=== PATIENT | female | born 1940 | race Two or more races ===

== ENCOUNTER 2024-07-10 17:26 | Inpatient (IN) | payer MEDICARE, OTHER ==
[~2024-07-10] VITALS: Ht 170.2 cm; Wt 92.0 kg
[2024-07-10] MEDS: VANCOMYCIN 1.5GM/250ML 250 ML IV ONE (01:09)
[2024-07-10] MEDS ORDERED: CEFEPIME 1GM/ 50ML 50 ML IV ONE (18:15)
[2024-07-10] MEDS ORDERED: VANCOMYCIN PER PHARMACY 0 MG IV SCH (18:15)
--- NOTE | 2024-07-10 18:16 | ED.PDOC ---
History of Present Illness HPI Comments 84-year-old female with history of hypertension, AFib, DVT, neuropathy and recently diagnosed bilateral leg and foot cellulitis on Bactrim brought in by EMS from home, referred to the ER by her primary doctor for worsening bilateral lower extremity redness and swelling. Patient denies any pain, as she states she has neuropathy in both feet. Patient also notes she has been unable to ambulate and has been wheelchair-bound since April of 2022, and has developed some wounds on her buttocks. She states she has had blisters on both lower extremities that burst 4 days ago, after which the lower extremity redness and swelling worsened. She states she has been compliant with taking Bactrim. She denies any chest pain, shortness of breath or fever. Chief Complaint: Extremity Swelling Time Seen by MD: 17:44 Primary Care Provider: MADDI Reviewed Notes: Nurses Notes, Vault Service Mechanic Notes Allergies: Coded Allergies: Cephalexin (Verified Allergy, Unknown, 07/10/24) Penicillins (Verified Allergy, Unknown, 07/10/24) Information Source: Patient, Emergency Med Personnel Mode of Arrival: EMS Past Medical History PAST MEDICAL HISTORY: AFIB, HTN Past Medical History (Other): DVT Surgical History: Cholecystectomy, Tonsillectomy Surgical History (Other): D&C EMBRYOLOGY TEACHER History: No Pertinent EMBRYOLOGY TEACHER History Family History Family History: Reviewed,noncontributory to illness Social History Smoker: Non-Smoker Alcohol: Denies ETOH Use Drugs: Denies Drug Use Lives In: Home All Other Systems: Reviewed and Negative (Comprehensive systems review obtained and negative except for what is stated in the HPI.) Physical Exam General Appearance: No Apparent Distress HEENT: Other (Pupils and face symmetric. Moist mucous membranes.) Neck: Full Range of Motion, Normal Inspection Respiratory: Lungs Clear, No Accessory Muscle Use, No Respiratory Distress, Normal Breath Sounds Cardiovascular: No JVD, Regular Rate/Rhythm Breast Exam: Deferred Gastrointestinal: Non Tender, Soft Genitalia: Deferred Pelvic: Deferred Rectal: Deferred Extremities: Leg edema, Pedal edema, Other (Bilateral lower leg and foot erythema, edema) Neurologic: Alert (Oriented x4), Normal Affect, Normal Mood, Other (Moves all extremities.) Cerebellar Function: NOT DONE Reflexes: NOT DONE Skin: Dry, Warm, Other (Bilateral lower leg and foot erythema and edema) Lymphatic: NOT DONE Was a procedure done? Was a procedure done?: No EKG EKG : Comments Sinus tach, rate 103, normal OH interval, QRS slightly prolonged at 132, QTC prolonged at 521, normal axis, right bundle branch block nonspecific T changes. Differential Dx Considerations may include: Cellulitis, CHF, DVT, sepsis, among others X-Ray, Labs, Meds, VS Vital Signs Date Time Temp Pulse Resp B/P (MAP) Pulse Ox O2 Delivery O2 Flow Rate FiO2 07/10/24 17:38 98.2 82 16 142/81 (101) 98 98.2 Lab Test 07/10/24 19:14 07/10/24 18:20 Range/Units Troponin I High Sensitivity 8 6 </=34 ng/L White Blood Count 10.3 4.4-10.8 10^3/uL Red Blood Count 4.44 4.0-5.20 10^6/uL Hemoglobin 13.1 12.2-16.2 g/dL Hematocrit 39.9 36.0-46.0 % Mean Corpuscular Volume 89.8 80.0-100.0 fL Mean Corpuscular Hemoglobin 29.5 28.0-32.0 pg Mean Corpuscular Hemoglobin Concent 32.9 32.0-36.0 g/dL Red Cell Distribution Width 14.3 11.8-14.3 % Platelet Count 398 140-450 10^3/uL Mean Platelet Volume 8.5 6.9-10.8 fL Neutrophils (%) (Auto) 81.9 H 37.0-80.0 % Lymphocytes (%) (Auto) 8.9 L 10.0-50.0 % Monocytes (%) (Auto) 7.7 0.0-12.0 % Eosinophils (%) (Auto) 0.3 0.0-7.0 % Basophils (%) (Auto) 1.2 0.0-2.0 % Neutrophils # (Auto) 8.5 1.6-8.6 10 ^3/uL Lymphocytes # (Auto) 0.9 0.4-5.4 10 ^3/uL Monocytes # (Auto) 0.8 0-1.3 10 ^3/uL Eosinophils # (Auto) 0 0-0.8 10 ^3/uL Basophils # (Auto) 0.1 0-0.2 10 ^3/uL Nucleated Red Blood Cells 0.1 % Sodium Level 140 136-145 mmol/L Potassium Level 4.9 3.5-5.1 mmol/L Chloride Level 106 98-107 mmol/L Carbon Dioxide Level 27 20-31 mmol/L Anion Gap 7 5-15 Blood Urea Nitrogen 37 H 9-23 mg/dL Creatinine 1.03 H 0.550-1.02 mg/dL Glomerular Filtration Rate Calc 54 >90 mL/min BUN/Creatinine Ratio 35.9 H 10.0-20.0 Serum Glucose 110 H 74-106 mg/dL Lactic Acid Level 1.0 0.4-2.0 mmol/L Calcium Level 9.8 8.7-10.4 mg/dL B-Type Natriuretic Peptide 41.62 0-100 pg/mL PROCEDURE(s): CXRP - CHEST PORTABLE REASON: edema ORDER NUMBER(s): [id number], ACCESSION NUMBER(s): [id number] CHEST RADIOGRAPH Indication: edema Technique: Single frontal view of the chest was obtained Comparison: None FINDINGS: Lines and Tubes: None Lungs: No focal consolidation. Mild Interstitial prominence. Pleura: No effusion. No pneumothorax. Cardiomediastinal contours: Mild cardiomegaly with moderate atherosclerotic calcification and uncoiling of the aorta. Bones: No acute osseous abnormality. IMPRESSION: Mild pulmonary vascular congestion. EDURE(s): BLDVT - BiLat Lower DVT REASON: ble edema ORDER NUMBER(s): [id number], ACCESSION NUMBER(s): [id number] Bilateral lower extremity venous duplex Clinical History: ble edema Comparison: None Technique: Duplex Doppler evaluation of the deep venous systems of both lower extremities from the common femoral veins to the popliteal veins including color Doppler and spectral/pulsed waveform analysis was performed. Findings: RIGHT SIDE: The common femoral vein demonstrates appropriate compressibility and waveform variability. There is compressibility/patency of the great saphenous vein at the proximal thigh. The femoral vein demonstrates appropriate compressibility and waveform variability. The deep femoral vein demonstrates appropriate compressibility and waveform variability. The popliteal vein demonstrates appropriate compressibility and waveform variability. There is color flow at the tibioperoneal trunk and in the posterior tibial vein. LEFT SIDE: The common femoral vein demonstrates appropriate compressibility and waveform variability. There is compressibility/patency of the great saphenous vein at the proximal thigh. The femoral vein demonstrates appropriate compressibility and waveform variability. The deep femoral vein demonstrates appropriate compressibility and waveform variability. The popliteal vein demonstrates appropriate compressibility and waveform variabi lity. There is color flow at the tibioperoneal trunk and in the posterior tibial vein. Impression: 1. No right or left femoropopliteal venous thrombosis. X-Ray, Labs, Meds, VS Comment 84-year-old female with a history of AFib, hypertension and DVT on Eliquis brought in by EMS for evaluation of worsening bilateral foot and leg edema and erythema Vitals remarkable for BP 142/81 Exam remarkable for bilateral foot and ankle and lower leg erythema and edema Rhythm strip independently interpreted by me: Sinus tach, rate 103, no ectopy. Chest x-ray IMPRESSION: Mild pulmonary vascular congestion. Bilateral lower extremity ultrasound Impression: 1. No right or left femoropopliteal venous thrombosis. CBC remarkable, BMP remarkable for BUN 37, creatinine 1.03, BNP normal, troponin negative, lactic normal, UA pending Patient treated with the following in the ED: Cefepime 1 g IV, vancomycin IV per pharmacy On re-evaluation, patient is resting comfortably with stable vitals. Plan is to admit the patient for IV antibiotics. Time of 1ST Reevaluation: 18:15 Reevaluation 1ST: Unchanged Patient Education/Counseling: Diagnosis, Treatment Family Education/Counseling: No Family Present Departure 1 Departure Time of Disposition: 21:41 Impression: Primary Impression: Bilateral lower leg cellulitis Disposition: ADMITTED INPATIENT Admit to: Med Surg Condition: Fair Critical Care Note Critical Care Time?: No Stability Stability form required: No Heart Score Heart Score: Heart Score Response (Comments) Value History N/A 0 EKG N/A 0 Age N/A 0 Risk Factors N/A 0 Troponin N/A 0 Total 0 JUSTINA GAGE MD Jul 10, 2024 18:16
[2024-07-10 18:41] LABS: Basophils # (auto) 0.1 10 ^3/uL (0-0.2); Basophils % (auto) 1.2 % (0.0-2.0); Eosinophils # (auto) 0 10 ^3/uL (0-0.8); Eosinophils % (auto) 0.3 % (0.0-7.0); Hematocrit 39.9 % (36.0-46.0); Hemoglobin 13.1 g/dL (12.2-16.2); Lymphocytes # (auto) 0.9 10 ^3/uL (0.4-5.4); Lymphocytes % (auto) 8.9 % (10.0-50.0); Mean Corpuscular Hemoglobin 29.5 pg (28.0-32.0); Mean Corpuscular Hgb Conc. 32.9 g/dL (32.0-36.0); Mean Corpuscular Volume 89.8 fL (80.0-100.0); Monocytes # (auto) 0.8 10 ^3/uL (0-1.3); Monocytes % (auto) 7.7 % (0.0-12.0); Neutrophils # (auto) 8.5 10 ^3/uL (1.6-8.6); Neutrophils % (auto) 81.9 % (37.0-80.0); Nucleated Red Blood Cells % 0.1 %; Platelet Count (auto) 398 10^3/uL (140-450); Red Blood Cells 4.44 10^6/uL (4.0-5.20); Red Cell Distribution Width 14.3 % (11.8-14.3); White Blood Cell 10.3 10^3/uL (4.4-10.8)
[2024-07-10 19:05] LABS: Chloride 106 mmol/L (98-107); Potassium 4.9 mmol/L (3.5-5.1); Sodium 140 mmol/L (136-145)
[2024-07-10 19:06] LABS: Anion Gap 7 (5-15); Carbon Dioxide 27 mmol/L (20-31)
[2024-07-10 19:07] LABS: Calcium 9.8 mg/dL (8.7-10.4)
[2024-07-10 19:11] LABS: BUN/Creatinine Ratio 35.9 (10.0-20.0)
[2024-07-10 19:13] LABS: Blood Urea Nitrogen 37 mg/dL (9-23); Glucose 110 mg/dL (74-106)
--- NOTE | 2024-07-10 20:41 | DVH ---
CHEST RADIOGRAPH Indication: edema Technique: Single frontal view of the chest was obtained Comparison: None FINDINGS: Lines and Tubes: None Lungs: No focal consolidation. Mild Interstitial prominence. Pleura: No effusion. No pneumothorax. Cardiomediastinal contours: Mild cardiomegaly with moderate atherosclerotic calcification and uncoili ng of the aorta. Bones: No acute osseous abnormality. IMPRESSION: Mild pulmonary vascular congestion.
--- NOTE | 2024-07-10 20:45 | DVH ---
Bilateral lower extremity venous duplex Clinical History: ble edema Comparison: None Technique: Duplex Doppler evaluation of the deep venous systems of both lower extremities from the co mmon femoral veins to the popliteal veins including color Doppler and spectral/pulsed waveform analys is was performed. Findings: RIGHT SIDE: The common femoral vein demonstrates appropriate compressibility and waveform variability. There is compressibility/patency of the great saphenous vein at the proximal thigh. The femoral vein demonstrates appropriate compressibility and waveform variability. The deep femoral vein demonstrates appropriate compressibility and waveform variability. The popliteal vein demonstrates appropriate compressibility and waveform variability. There is color flow at the tibioperoneal trunk and in the posterior tibial vein. LEFT SIDE: The common femoral vein demonstrates appropriate compressibility and waveform variability. There is compressibility/patency of the great saphenous vein at the proximal thigh. The femoral vein demonstrates appropriate compressibility and waveform variability. The deep femoral vein demonstrates appropriate compressibility and waveform variability. The popliteal vein demonstrates appropriate compressibility and waveform variability. There is color flow at the tibioperoneal trunk and in the posterior tibial vein. Impression: 1. No right or left femoropopliteal venous thrombosis.
[2024-07-11] VITALS (11 sets, daily range): BP systolic 90–111; BP diastolic 32–53; PULSE 77–99; RESP 12–18; TEMP 98–98.5; O2SAT 94–98
[2024-07-11] MEDS: VANCOMYCIN 1.5GM/300ML 300 ML IV ONE (01:08)
[2024-07-11] MEDS: VANCOMYCIN 1.5GM/250ML 250 ML IV ONE (01:09)
[2024-07-11] MEDS ORDERED: ONDANSETRON HCL 4 MG/2 ML VIAL IV PRN (01:15)
--- NOTE | 2024-07-11 01:23 | DVHHPRES ---
History of Present Illness Resident Creating Document: KAL WILKES RESIDENT History of Present Illness Patient is an 84-year-old wheelchair-bound female with past medical history of hypertension, atrial fibrillation, severe peripheral neuropathy, chronic venous stasis, lower extremity cellulitis, dyslipidemia, rectal prolapse, who comes in due to bilateral lower extremity blistering lesions. Per patient, she was discharged from the [facility] on 06/12/2024 after being treated for bilateral lower extremity cellulitis. According to the patient, she noticed increasing blisters on bilateral lower extremities that bursted and started draining, patient says it seemed infected and she talked to her PCP who recommended that she goes to the hospital which is what prompted this visit. On review of systems patient is complaining of chills and constipation. Past Medical History hypertension, atrial fibrillation, severe peripheral neuropathy, chronic venous stasis, lower extremity cellulitis, dyslipidemia, rectal prolapse Past Surgical History Cholecystectomy, D and C, tonsillectomy, adenoidectomy Smoke: No ALCOHOL: none Drugs: None Lives: Alone Review of Systems Constitutional: Yes: Chills; No: Fever, Sweats, Weakness, Malaise, Other Eyes: No: Pain, Vision change, Conjunctivae inflammation, Eyelid inflammation, Other, Redness ENT: No: Ear pain, Ear discharge, Nose pain, Nose discharge, Nose congestion, Mouth pain, Mouth swelling, Throat pain, Throat swelling, Other Respiratory: No: Cough, Dry, Shortness of breath, SOB with excertion, Wheezing, Hemoptysis, Pleuritic Pain, Sputum, Wheezing, Other Cardiovascular: No: Chest Pain, Palpitations, Orthopnea, Paroxysmal Noc. Dyspnea, Edema, Lt Headedness, Other Gastrointestinal: Constipation; No: Nausea, Vomiting, Abdominal Pain, Diarrhea, Melena, Hematochezia, Other Genitourinary: No Dysuria, No Frequency, No Incontinence, No Hematuria, No Retention, No Other Musculoskeletal: No: other, neck pain, shoulder pain, arm pain, back pain, hand pain, leg pain, foot pain Skin: No: Rash, Lesions, Jaundice, Bruising, Other Neurological: No: Weakness, Numbness, Incoordination, Change in speech, Confusion, Seizures, Other Allergies: Coded Allergies: Cephalexin (Verified Allergy, Unknown, 07/10/24) Penicillins (Verified Allergy, Unknown, 07/10/24) Medications Current Medications Medications Dose Ordered Sig/Vinny Route Start Time Stop Time Status Last Admin Dose Admin Vancomycin HCl 0 ml @ 0 mls/hr UD IV 07/10/24 18:15 Acetaminophen 325 mg Q4HP PRN PO 07/11/24 01:15 UNV Ondansetron HCl 4 mg Q4HP PRN IV 07/11/24 01:15 UNV Enoxaparin Sodium 100 mg Q12HR SC 07/11/24 01:15 UNV Pantoprazole Sodium 40 mg DAILY@0600 PO 07/11/24 06:00 UNV Exam Vital Signs Vital Signs Date Time Temp Pulse Resp B/P (MAP) Pulse Ox O2 Delivery O2 Flow Rate FiO2 07/11/24 00:15 96 12 98 Room Air* 0 21 07/11/24 00:15 98.3 80/56 (64) 98.3 General Appearance: Alert, Oriented X3, Cooperative, No acute distress HEENT: Atraumatic, PERRLA, EOMI, Other (dry mucous membrane) Respiratory: Clear to auscultation, Normal air movement Cardiovascular: Regular rate, Normal S1, Normal S2 Abdominal: Normal bowel sounds, Soft, No tenderness Extremities: Other (Bilateral lower extremity stasis dermatitis, ulcer noted on the medial aspect of left foot. Multiple scabbed lesions. Erythema and swelling. Decreased but positive pedal pulses on the left) Neuro: Normal speech, Other (Stage III pressure ulcers noted on the sacral area, skin fold maceration noted.) Psych/Mental Status: Mental status NL, Mood NL, Other (Slightly sad affect, no suicidal or homicidal ideation.) Labs/Xrays Labs Test 07/10/24 19:14 07/10/24 18:20 Range/Units Troponin I High Sensitivity 8 </=34 ng/L White Blood Count 10.3 4.4-10.8 10^3/uL Red Blood Count 4.44 4.0-5.20 10^6/uL Hemoglobin 13.1 12.2-16.2 g/dL Hematocrit 39.9 36.0-46.0 % Mean Corpuscular Volume 89.8 80.0-100.0 fL Mean Corpuscular Hemoglobin 29.5 28.0-32.0 pg Mean Corpuscular Hemoglobin Concent 32.9 32.0-36.0 g/dL Red Cell Distribution Width 14.3 11.8-14.3 % Platelet Count 398 140-450 10^3/uL Mean Platelet Volume 8.5 6.9-10.8 fL Neutrophils (%) (Auto) 81.9 H 37.0-80.0 % Lymphocytes (%) (Auto) 8.9 L 10.0-50.0 % Monocytes (%) (Auto) 7.7 0.0-12.0 % Eosinophils (%) (Auto) 0.3 0.0-7.0 % Basophils (%) (Auto) 1.2 0.0-2.0 % Neutrophils # (Auto) 8.5 1.6-8.6 10 ^3/uL Lymphocytes # (Auto) 0.9 0.4-5.4 10 ^3/uL Monocytes # (Auto) 0.8 0-1.3 10 ^3/uL Eosinophils # (Auto) 0 0-0.8 10 ^3/uL Basophils # (Auto) 0.1 0-0.2 10 ^3/uL Nucleated Red Blood Cells 0.1 % Sodium Level 140 136-145 mmol/L Potassium Level 4.9 3.5-5.1 mmol/L Chloride Level 106 98-107 mmol/L Carbon Dioxide Level 27 20-31 mmol/L Anion Gap 7 5-15 Blood Urea Nitrogen 37 H 9-23 mg/dL Creatinine 1.03 H 0.550-1.02 mg/dL Glomerular Filtration Rate Calc 54 >90 mL/min BUN/Creatinine Ratio 35.9 H 10.0-20.0 Serum Glucose 110 H 74-106 mg/dL Lactic Acid Level 1.0 0.4-2.0 mmol/L Calcium Level 9.8 8.7-10.4 mg/dL B-Type Natriuretic Peptide 41.62 0-100 pg/mL Assessment/Plan Assessment/Plan Bilateral lower extremity cellulitis Left foot ulcer, dorsomedial aspect Possible sepsis due to above Chronic venous stasis dermatitis Ruled out DVT - lower extremity Doppler negative - lower extremity CT from 06/07/2024 shows findings suggestive of diffuse cellulitis and/or edema. No fluid collection or abscess. - wound culture, blood culture - L lower extremity wound culture from 06/10/2024 showed Streptococcus group B, Staph aureus, VRE faecalis, Klebsiella - started on IV daptomycin and ertapenem based on previous culture and sensitivity results of the left lower extremity wound - IV NS 500 cc once - ordered PT evaluation - podiatry consulted Multiple sacral wounds, POA - wound consult - wound culture History of atrial fibrillation Hypercoagulable state secondary to above - therapeutic Lovenox - per patient last dose of Eliquis home medication was on 07/10/2024 in the a.m. - resumed home medication amiodarone 200 mg p.o. 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 - IV NS 500 cc - ordered urine sodium, urine creatinine - monitor Severe peripheral neuropathy - resumed home medication tramadol Hypertension Hypertensive heart disease Prediabetes?, A1c 5.8 on 06/06/2024 - holding home antihypertensives as blood pressure on the soft side - echocardiogram from 06/07/2024 shows EF 65%, left atrium enlarged. No severe valve abnormalities noted. PUD prophylaxis: protonix 40mg Goals of care: Chemical code, discussed for >16 minutes on 07/11/2024 Plan discussed with patient Plan discussed with Dr. Roberto Plan discussed with: Patient, Other (RN) My Orders Orders - KAL WILKES RESIDENT Procedure Category Date Status Time Admit ADMIT 07/11/24 Transmitted 01:11 Allergies MARY 07/11/24 In Process 01:11 Code Status CODE 07/11/24 Transmitted 01:11 Acetaminophen Tablet PHA 07/11/24 Logged (Tylenol Tablet) 01:15 Ondansetron Hcl PHA 07/11/24 Logged (Zofran) 01:15 Cardiac DIET 07/11/24 Transmitted Diet-2gna,Lofat,Lochol Breakfast Pt Request For Service PT 07/11/24 Logged 01:11 Condition: Unstable MARY 07/11/24 In Process 01:11 Notify Md Of Changes MARY 07/11/24 In Process From Base 01:11 Enoxaparin Sodium PHA 07/11/24 Logged (Lovenox) 01:15 Pantoprazole Tablet PHA 07/11/24 Logged (Protonix Tablet) 06:00 Sodium Chloride 0.9% PHA 07/11/24 Logged 01:15 Amiodarone Tablet PHA 07/11/24 Transmitted (Cordarone Tablet) 10:00 Tramadol Hcl (Ultram) PHA 07/11/24 Transmitted 01:30 Date of Service: Jul 11, 2024 Billing Provider: MARIA LUZ ROBERTO MD Common Visit Codes: [id number] INP/OBS CARE (HIGH) KAL WILKES RESIDENT Jul 11, 2024 01:23
[2024-07-11] MEDS ORDERED: DOCUSATE SOD 100 MG CAP PO PRN (01:30)
[2024-07-11] MEDS: SODIUM CHLORIDE 0.9% 500 ML IV ONE (01:36)
[2024-07-11] MEDS: traMADol HCL 50 MG TAB PO PRN (01:39)
[2024-07-11] MEDS: ENOXAPARIN SOD 100 MG/1 ML SYRINGE SC SCH ×2 (01:39→09:55)
[2024-07-11] MEDS: PANTOPRAZOLE 40 MG TAB PO SCH (06:32)
[2024-07-11] MEDS: ACETAMINOPHEN 325 MG TAB PO PRN (08:15)
[2024-07-11] MEDS: AMIODARONE HCL 200 MG TAB PO SCH (09:53)
[2024-07-11] MEDS: ERTAPENEM SOD INJ 1 GM in SODIUM CHL 0.9% 50 ML IV SCH (09:55)
[2024-07-11] MEDS ORDERED: CEFEPIME 2GM/50ML NS 50 ML IV SCH (10:00)
[2024-07-11] MEDS ORDERED: BACL20TA PO (10:33)
[2024-07-11] MEDS ORDERED: APIX5TAB PO (10:33)
[2024-07-11 10:44] LABS: Basophils # (auto) 0.1 10 ^3/uL (0-0.2); Basophils % (auto) 0.6 % (0.0-2.0); Eosinophils # (auto) 0.2 10 ^3/uL (0-0.8); Eosinophils % (auto) 1.7 % (0.0-7.0); Lymphocytes # (auto) 1.7 10 ^3/uL (0.4-5.4); Lymphocytes % (auto) 18.6 % (10.0-50.0); Mean Corpuscular Hemoglobin 29.9 pg (28.0-32.0); Mean Corpuscular Hgb Conc. 33.3 g/dL (32.0-36.0); Monocytes # (auto) 0.8 10 ^3/uL (0-1.3); Monocytes % (auto) 8.9 % (0.0-12.0); Neutrophils # (auto) 6.4 10 ^3/uL (1.6-8.6); Neutrophils % (auto) 70.2 % (37.0-80.0); Nucleated Red Blood Cells % 0.1 %; Platelet Count (auto) 373 10^3/uL (140-450); Red Cell Distribution Width 14.2 % (11.8-14.3); White Blood Cell 9.2 10^3/uL (4.4-10.8)
--- NOTE | 2024-07-11 10:48 | DVHPNRES ---
Progress Note Date Seen: Jul 11, 2024 Resident Creating Document: DAVIS NEWMAN RESIDENT Has the PT tested + for MRSA If YES, has PT been informed?: No Medical Necessity Reason Pt with a Central, PICC or Fol: No Medical Necessity Reason History of Present Illness Patient is an 84-year-old wheelchair-bound female with past medical history of hypertension, atrial fibrillation, severe peripheral neuropathy, chronic venous stasis, lower extremity cellulitis, dyslipidemia, rectal prolapse, who comes in due to bilateral lower extremity blistering lesions. Per patient, she was discharged from the [facility] on 06/12/2024 after being treated for bilateral lower extremity cellulitis. According to the patient, she noticed increasing blisters on bilateral lower extremities that bursted and started draining, patient says it seemed infected and she talked to her PCP who recommended that she goes to the hospital which is what prompted this visit. On review of systems patient is complaining of chills and constipation. Past Medical History: hypertension, atrial fibrillation, severe peripheral neuropathy, chronic venous stasis, lower extremity cellulitis, dyslipidemia, rectal prolapse, history of rheumatic fever as a child Past Surgical History: Cholecystectomy, D and C, tonsillectomy, adenoidectomy Social history: Denies smoking, alcohol and other drugs use. She lives alone but has nurse, PT and step children who comes to visit. PN: 07/11/2024 This is an 84-year-old female wheelchair-bound with a history of hypertension AFib, neuropathy recent history of bilateral cellulitis presented yesterday with bilateral lower extremity redness, pain and open wound. According to the patient, she had a blister on her right foot that broke open and then lead to open wound and is the similar thing with the left foot as well. According to the patient, She is wheelchair bound at baseline. She had weakness on her legs,but since her in 04/2024 spent so much in bed and that made her weakness worse. She managed for cellulitis in May 2024. Patient to the ED with similar problem of bilateral erythema, open wound and sores. She was tachycardic early and her bp is running low BP at 80/56 and running low. Hgb; 13.1 lactic acid is 1. UA and blood culture are pending. She is currently on Daptomycin and Ertapenem based on her last wound culture and sensitivity. Subjective Review of Systems Constitutional: Denies fever no chills no feeling of malaise HEENT: Denies headache, ear pain, ear discharges, conjunctivitis, nasal discharge throat pain Cardiovascular: Denies chest pain, palpitation, orthopnea, PND, or pedal edema Respiratory: Denies shortness of breath, cough cough, sputum production, hemoptysis, GI: Denies abdominal pain, nausea, vomiting, diarrhea, hematemesis, hematochezia, : Denies frequency, urgency, hematuria, Endocrine: Denies unintentional weight gain or weight loss, feeling of hot flashes, Rashard: Denies easy bruising, bleeding disorders, epistaxis Musculoskeletal: joint pains, muscle aches, no or mild sensation, pain on join movement Psych: No evidence of depression, arvin, suicidal ideation Objective vital signs Vital Sign Date Time Temp Pulse Resp B/P (MAP) Pulse Ox O2 Delivery O2 Flow Rate FiO2 07/11/24 09:00 98.3 89 16 90/35 (53) 95 98.3 07/11/24 03:56 Room Air* 0 21 Total Intake and Output 07/10/24 07/10/24 07/11/24 15:00 23:00 07:00 Intake Total 0 ml Output Total 0 ml Balance 0 ml medications Current Medications Medications Dose Ordered Sig/Vinny Route Start Time Stop Time Status Last Admin Dose Admin Acetaminophen 325 mg Q4HP PRN PO 07/11/24 01:15 07/11/24 08:15 325 MG Ondansetron HCl 4 mg Q4HP PRN IV 07/11/24 01:15 Pantoprazole Sodium 40 mg DAILY@0600 PO 07/11/24 06:00 07/11/24 06:32 40 MG Amiodarone HCl 200 mg DAILY PO 07/11/24 10:00 07/11/24 09:53 200 MG Tramadol HCl 50 mg Q6HP PRN PO 07/11/24 01:30 07/11/24 01:39 50 MG Docusate Sodium 100 mg BIDPRN PRN PO 07/11/24 01:30 Daptomycin 300 mg/ Sodium Chloride 50 ml @ 100 mls/hr DAILY@1100 IV 07/11/24 11:00 Ertapenem 1 gm/ Sodium Chloride 50 ml @ 100 mls/hr DAILY IV 07/11/24 10:00 07/11/24 09:55 100 MLS/HR Enoxaparin Sodium 90 mg Q12HR SC 07/11/24 10:00 07/11/24 09:55 90 MG Examination General Appearance: Alert, Oriented X3, Cooperative, No acute distress HEENT: Atraumatic, PERRLA, EOMI, Mucous membrane moist/pink Respiratory: Clear to auscultation, Normal air movement Cardiovascular: Regular rate, Normal S1, Normal S2, systolic murmurs heard, no chest wall tenderness Abdominal: NO distention, no tenderness, bowel sounds present, no scars noted Extremities: bilateral lower extremity, erythema, Mild non-pitting edema, Multiple eschars, pulse present though faint, wheelchair bound Skin: dry, scale with mild erythema and some maceration, warm to touch, Neuro: Normal gait, Normal speech, Strength at 5/5 X4 ext, Normal tone, Sensation intact, Cranial nerves 3-12 NL, Reflexes 2+ Psych/Mental Status: Mental status NL, Mood NL laboratory and microbiology Test 07/11/24 09:19 Range/Units Serum Glucose Pending Problem List/Assessment/Plan Problem List/Assessment/Plan Assessment Superficial skin infection, Right legs --> Likely Erysipelas --> Possible contact dermatitis --> Cover with mupirocin --> ceftriaxone, daptomycin Stasis dermatitis bilateral --> Recommended vascular surgery evaluation outpatient Multiple sacral wounds, POA - wound consult - wound culture History of atrial fibrillation Hypercoagulable state secondary to above - therapeutic Lovenox - per patient last dose of Eliquis home medication was on 07/10/2024 in the a.m. - resumed home medication amiodarone 200 mg p.o. 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 - IV NS 500 cc - ordered urine sodium, urine creatinine - monitor Severe peripheral neuropathy - resumed home medication tramadol Hypertension Hypertensive heart disease Prediabetes?, A1c 5.8 on 06/06/2024 - holding home antihypertensives as blood pressure on the soft side - echocardiogram from 06/07/2024 shows EF 65%, left atrium enlarged. No severe valve abnormalities noted. UTI --> continue antibiotic --> Obesity grade 1 --> BMI: 30.5 History of Rheumatic fever PUD prophylaxis: protonix 40mg Goals of care: Chemical code, discussed for >16 minutes: Chemical code Case and plan discussed + Dr. Quiroga Plan discussed with: Patient, Other (nurse) My Orders My Orders Orders - DAVIS NEWMAN Procedure Category Date Status Time Basic Metabolic Panel LAB 07/11/24 Logged 10:19 Complete Blood Count LAB 07/11/24 Logged 10:19 Blood Culture MALLY 07/11/24 Uncollected 10:19 Apixaban (Eliquis) PHA 07/11/24 Transmitted 22:00 (Nf) Baclofen PHA 07/11/24 Transmitted 14:00 Date of Service: Jul 11, 2024 Billing Provider: ZEHRA QUIROGA MD Common Visit Codes: [id number] INP/OBS CARE(HIGH) DAVIS NEWMAN Jul 11, 2024 10:48 ZEHRA QUIROGA MD July 13, 2024 19:17
[2024-07-11 11:02] LABS: Alanine Aminotransferase 12 U/L (7-40); Alkaline Phosphatase 86 U/L (46-116); Anion Gap 8 (5-15); Aspartate Aminotransferase 17 U/L (13-40); BUN/Creatinine Ratio 26.7 (10.0-20.0); Bilirubin, Total 0.5 mg/dL (0.2-1.0); Calcium 9.2 mg/dL (8.7-10.4); Carbon Dioxide 25 mmol/L (20-31); Potassium 3.9 mmol/L (3.5-5.1); Sodium 141 mmol/L (136-145)
[2024-07-11 11:04] LABS: Blood Urea Nitrogen 24 mg/dL (9-23); Chloride 108 mmol/L (98-107); Glucose 129 mg/dL (74-106); Total Protein 5.1 g/dL (5.7-8.2)
[2024-07-11] MEDS: DAPTOmycin 300 MG in SODIUM CHL 0.9% 50 ML IV SCH (11:19)
--- NOTE | 2024-07-11 12:04 | DVHINCON2 ---
Date Seen: Jul 11, 2024 Reason for Consultation Bilateral lower extremity cellulitis History of Present Illness Patient is an 84-year-old wheelchair-bound female with past medical history of hypertension, atrial fibrillation, severe peripheral neuropathy, chronic venous stasis, lower extremity cellulitis, dyslipidemia, rectal prolapse, who comes in due to bilateral lower extremity blistering lesions. Per patient, she was discharged from the [facility] on 06/12/2024 after being treated for bilateral lower extremity cellulitis. According to the patient, she noticed increasing blisters on bilateral lower extremities that bursted and started draining, patient says it seemed infected and she talked to her PCP who recommended that she goes to the hospital which is what prompted this visit. On review of systems patient is complaining of chills and constipation. Past Medical History See H&P Past Surgical History See H&P Family History: Diabetes mellitus G8 MOTHER FH: brain tumor G8 FATHER FH: neuropathy G8 MOTHER Allergies: Coded Allergies: Cephalexin (Verified Allergy, Unknown, 07/10/24) Penicillins (Verified Allergy, Unknown, 07/10/24) Home Meds Reported Medications Baclofen (Baclofen) 20 Mg Tab, 1 TAB PO TID 07/11/24 Apixaban Base (ELIQUIS) 5 Mg Tab, 1 TAB PO BID 07/11/24 Current Medications Current Medications Medications (Trade) Dose Ordered Sig/Vinny Route PRN Reason Start Time Stop Time Status Last Admin Vancomycin HCl 0 ml @ 0 mls/hr UD IV 07/10/24 18:15 07/11/24 03:53 DC Acetaminophen (Tylenol Tablet) 325 mg Q4HP PRN PO MILD PAIN (1-3 PAIN SCALE) 07/11/24 01:15 07/11/24 08:15 Ondansetron HCl (Zofran) 4 mg Q4HP PRN IV NAUSEA / VOMITING 07/11/24 01:15 Enoxaparin Sodium (Lovenox) 100 mg Q12HR SC 07/11/24 01:15 07/11/24 07:37 DC 07/11/24 01:39 Pantoprazole Sodium (Protonix Tablet) 40 mg DAILY@0600 PO 07/11/24 06:00 07/11/24 06:32 Amiodarone HCl (Cordarone Tablet) 200 mg DAILY PO 07/11/24 10:00 07/11/24 09:53 Tramadol HCl (Ultram) 50 mg Q6HP PRN PO SEVERE PAIN (7-10 PAIN SCALE) 07/11/24 01:30 07/11/24 10:35 Docusate Sodium (Colace Capsule) 100 mg BIDPRN PRN PO FOR CONSTIPATION 07/11/24 01:30 Cefepime HCl 50 ml @ 12.5 mls/hr Q12HR IV 07/11/24 10:00 07/11/24 03:53 DC Daptomycin 300 mg/ Sodium Chloride 50 ml @ 100 mls/hr DAILY@1100 IV 07/11/24 11:00 07/11/24 11:19 Ertapenem 1 gm/ Sodium Chloride 50 ml @ 100 mls/hr DAILY IV 07/11/24 10:00 07/11/24 09:55 Enoxaparin Sodium (Lovenox) 90 mg Q12HR SC 07/11/24 10:00 07/11/24 09:55 Apixaban (Eliquis) 5 mg BID PO 07/11/24 22:00 UNV Patient Own Medication 1 tab TID PO 07/11/24 14:00 UNV Vital Signs Vital Signs Date Time Temp Pulse Resp B/P (MAP) Pulse Ox O2 Delivery O2 Flow Rate FiO2 07/11/24 10:37 89 108/38 (61) 07/11/24 09:00 98.3 16 95 98.3 07/11/24 03:56 Room Air* 0 21 Physical Exam Dermatological: Skin is dry with mild erythema and some maceration around the wound site No gross deformities noted Mild non-pitting edema present bilaterally Multiple eschars on bilateral lower extremity Wound on the medial aspect of the left foot with macerated borders Vascular: Dorsalis pedis and posterior tibial pulses are 1+ bilaterally Capillary refill is under 2 seconds Skin temperature is warm bilaterally Neurologic: Protective sensation is absent on the plantar forefoot bilaterally Monofilament testing reveals decreased sensation in multiple plantar sites Musculoskeletal: Range of motion at the ankle and MTP joints is within normal limits. Strength is 5/5 in all tested muscle groups. Gait is antalgic due to offloading of the affected limb. Labs/Diagnostic Data Labs Test 07/11/24 09:19 07/10/24 19:14 07/10/24 18:20 Range/Units White Blood Count 9.2 4.4-10.8 10^3/uL Red Blood Count 4.00 4.0-5.20 10^6/uL Hemoglobin 12.0 L 12.2-16.2 g/dL Hematocrit 36.0 36.0-46.0 % Mean Corpuscular Volume 90.0 80.0-100.0 fL Mean Corpuscular Hemoglobin 29.9 28.0-32.0 pg Mean Corpuscular Hemoglobin Concent 33.3 32.0-36.0 g/dL Red Cell Distribution Width 14.2 11.8-14.3 % Platelet Count 373 140-450 10^3/uL Mean Platelet Volume 8.6 6.9-10.8 fL Neutrophils (%) (Auto) 70.2 37.0-80.0 % Lymphocytes (%) (Auto) 18.6 10.0-50.0 % Monocytes (%) (Auto) 8.9 0.0-12.0 % Eosinophils (%) (Auto) 1.7 0.0-7.0 % Basophils (%) (Auto) 0.6 0.0-2.0 % Neutrophils # (Auto) 6.4 1.6-8.6 10 ^3/uL Lymphocytes # (Auto) 1.7 0.4-5.4 10 ^3/uL Monocytes # (Auto) 0.8 0-1.3 10 ^3/uL Eosinophils # (Auto) 0.2 0-0.8 10 ^3/uL Basophils # (Auto) 0.1 0-0.2 10 ^3/uL Nucleated Red Blood Cells 0.1 % Sodium Level 141 136-145 mmol/L Potassium Level 3.9 3.5-5.1 mmol/L Chloride Level 108 H 98-107 mmol/L Carbon Dioxide Level 25 20-31 mmol/L Anion Gap 8 5-15 Blood Urea Nitrogen 24 #H 9-23 mg/dL Creatinine 0.90 0.550-1.02 mg/dL Glomerular Filtration Rate Calc 64 >90 mL/min BUN/Creatinine Ratio 26.7 H 10.0-20.0 Serum Glucose 129 H 74-106 mg/dL Calcium Level 9.2 8.7-10.4 mg/dL Total Bilirubin 0.5 0.2-1.0 mg/dL Aspartate Amino Transferase (AST) 17 13-40 U/L Alanine Aminotransferase (ALT) 12 7-40 U/L Alkaline Phosphatase 86 46-116 U/L Total Protein 5.1 L 5.7-8.2 g/dL Albumin 3.0 L 3.2-4.8 g/dL Troponin I High Sensitivity 8 </=34 ng/L Lactic Acid Level 1.0 0.4-2.0 mmol/L B-Type Natriuretic Peptide 41.62 0-100 pg/mL Problems(with codes): (1) Bilateral lower leg cellulitis Plan/Recommendation ASSESSMENT: Patient is a 84 year old seen on the floor for a worsening ulcer PLAN: - The patients chart was reviewed, clinical findings were discussed with the patient, the etiologies of the conditions were discussed in detail, and a treatment plan was agreed to at this time, with both oral and written instructions provided. - reviewed advanced imaging - discussed that there does not appear to be any deep abscess - recommend we treat with IV antibiotics for the cellulitis - patient has a wound care doctor [place] that she follows - recommend that she has close follow up with him after discharge - no surgical indication at this point All questions were answered and concerns addressed to the patient's satisfaction. The patient was given the phone number to the clinic and was told how to make contact with the clinic should any concerns or questions arise. Patient understands that if any questions or concerns arise prior to the next appointment, we should be contacted immediately. FOLLOW-UP: Continue to follow while inpatient Plan discussed with: Patient Date of Service: Jul 11, 2024 Billing Provider: HERIBERTO LARSEN DPM Common Visit Codes: CONSULT ONLY Consultation Codes: [id number] CONSULT <80MIN HERIBERTO LARSEN DPM Jul 11, 2024 12:04
[2024-07-11] MEDS: BACLOFEN 10 MG TAB PO SCH (13:48)
[2024-07-11] MEDS ORDERED: BACL10TA PO (14:59)
[2024-07-11] MEDS ORDERED: PREG100C PO (14:59)
[2024-07-11] MEDS ORDERED: TRAM-626 PO (14:59)
[2024-07-11] MEDS ORDERED: GABA-1250 PO (14:59)
[2024-07-11] MEDS ORDERED: LOSA-535 PO (14:59)
[2024-07-11] MEDS ORDERED: DULO60CA41 PO (14:59)
[2024-07-11] MEDS ORDERED: AMIO200T33 PO (14:59)
[2024-07-11 15:30] LABS: Urine Bacteria None Seen /hpf (None Seen)
[2024-07-11] MEDS ORDERED: MUPIROCIN 2% OINT 15gm or 22gm TOP ONE (15:30)
[2024-07-11 15:49] LABS: Urine Blood 2+ /uL (Negative); Urine Budding Yeast OCCASIONAL /hpf (None Seen); Urine Clarity Turbid (Clear); Urine Color Light-Yellow (Yellow); Urine Protein, UAD TRACE (Negative); Urine Specific Gravity 1.021 (1.001-1.035); Urine Squamous Epithelial Cell FEW /hpf (<5); Urine Urobilinogen Normal (Negative); Urine WBC 15 /HPF (0-5); Urine pH 6.5 (5.0-9.0)
[2024-07-11] MEDS: cefTRIAXone 1GM/50ML D5W 50 ML IV ONE (15:49)
[2024-07-11] MEDS: MUPIROCIN 2% OINT 15gm or 22gm TOP SCH (15:55)
[2024-07-11 15:56] LABS: Creatinine, Urine 56.2 mg/dL (30.0-125.0)
[2024-07-11] MEDS: GABAPENTIN 300 MG CAP PO SCH (17:28)
[2024-07-11] MEDS: DULoxetine HCL 30 MG CAP PO SCH (21:57)
[2024-07-11] MEDS: APIXABAN 5 MG TAB PO SCH (21:59)
[2024-07-11] MEDS ORDERED: PREGABALIN 25 MG CAP PO SCH (22:00)
[2024-07-11] MEDS ORDERED: DULoxetine HCL 30 MG CAP PO SCH (22:00)
[2024-07-11] MEDS ORDERED: GABAPENTIN 300 MG CAP PO SCH (22:00)
[2024-07-12 05:00] VITALS: BP 107/49; PULSE 73; RESP 18; TEMP 98; O2SAT 92
[2024-07-12 06:27] LABS: Basophils # (auto) 0.1 10 ^3/uL (0-0.2); Basophils % (auto) 0.8 % (0.0-2.0); Eosinophils # (auto) 0.5 10 ^3/uL (0-0.8); Eosinophils % (auto) 5.8 % (0.0-7.0); Lymphocytes # (auto) 2.3 10 ^3/uL (0.4-5.4); Lymphocytes % (auto) 26.8 % (10.0-50.0); Mean Corpuscular Hemoglobin 29.8 pg (28.0-32.0); Mean Corpuscular Hgb Conc. 33.2 g/dL (32.0-36.0); Mean Corpuscular Volume 89.9 fL (80.0-100.0); Monocytes # (auto) 0.8 10 ^3/uL (0-1.3); Monocytes % (auto) 9.7 % (0.0-12.0); Neutrophils # (auto) 4.8 10 ^3/uL (1.6-8.6); Neutrophils % (auto) 56.9 % (37.0-80.0); Platelet Count (auto) 391 10^3/uL (140-450); Red Blood Cells 4.01 10^6/uL (4.0-5.20); White Blood Cell 8.5 10^3/uL (4.4-10.8)
[2024-07-12 06:32] LABS: Potassium 3.8 mmol/L (3.5-5.1); Sodium 143 mmol/L (136-145)
[2024-07-12 06:33] LABS: Anion Gap 5 (5-15); Carbon Dioxide 26 mmol/L (20-31)
[2024-07-12 06:36] LABS: Chloride 112 mmol/L (98-107)
[2024-07-12 06:38] LABS: BUN/Creatinine Ratio 23.7 (10.0-20.0); Blood Urea Nitrogen 18 mg/dL (9-23); Glucose 84 mg/dL (74-106)
[2024-07-12 08:00] VITALS: RESP 18
[2024-07-12] MEDS: cefTRIAXone 1GM/50ML D5W 50 ML IV SCH (08:30)
[2024-07-12 09:20] VITALS: BP 125/54; PULSE 70; RESP 19; TEMP 97.7; O2SAT 100
[2024-07-12] MEDS: LOSARTAN POTASSIUM 50 MG TAB PO SCH (10:00)
[2024-07-12 13:26] VITALS: BP 105/53; PULSE 73; RESP 19; TEMP 97.6; O2SAT 99
[2024-07-12 16:32] VITALS: BP 104/52; PULSE 65; RESP 19; TEMP 97.5; O2SAT 97
--- NOTE | 2024-07-12 17:10 | DVHPNRES ---
Progress Note Date Seen: July 12, 2024 Resident Creating Document: DAVIS NEWMAN RESIDENT Has the PT tested + for MRSA If YES, has PT been informed?: No Medical Necessity Reason Pt with a Central, PICC or Fol: No Medical Necessity Reason History of Present Illness Patient is an 84-year-old wheelchair-bound female with past medical history of hypertension, atrial fibrillation, severe peripheral neuropathy, chronic venous stasis, lower extremity cellulitis, dyslipidemia, rectal prolapse, who comes in due to bilateral lower extremity blistering lesions. Per patient, she was discharged from the [facility] on 06/12/2024 after being treated for bilateral lower extremity cellulitis. According to the patient, she noticed increasing blisters on bilateral lower extremities that bursted and started draining, patient says it seemed infected and she talked to her PCP who recommended that she goes to the hospital which is what prompted this visit. On review of systems patient is complaining of chills and constipation. Past Medical History: hypertension, atrial fibrillation, severe peripheral neuropathy, chronic venous stasis, lower extremity cellulitis, dyslipidemia, rectal prolapse, history of rheumatic fever as a child Past Surgical History: Cholecystectomy, D and C, tonsillectomy, adenoidectomy Social history: Denies smoking, alcohol and other drugs use. She lives alone but has nurse, PT and step children who comes to visit. PN: 07/11/2024 This is an 84-year-old female wheelchair-bound with a history of hypertension AFib, neuropathy recent history of bilateral cellulitis presented yesterday with bilateral lower extremity redness, pain and open wound. According to the patient, she had a blister on her right foot that broke open and then lead to open wound and is the similar thing with the left foot as well. According to the patient, She is wheelchair bound at baseline. She had weakness on her legs,but since her in 04/2024 spent so much in bed and that made her weakness worse. She managed for cellulitis in May 2024. Patient to the ED with similar problem of bilateral erythema, open wound and sores. She was tachycardic early and her bp is running low BP at 80/56 and running low. Hgb; 13.1 lactic acid is 1. UA and blood culture are pending. She is currently on Daptomycin and Ertapenem based on her last wound culture and sensitivity. PN 07/12/2024 Patient was seen today. She was sleeping at the time of our visit. Her left midfoot draining wound in the left midfoot. Her wound is more superficial. wound consult is on board for wound dressing and she is antibiotics.Her pain level is going down. Podiatry advised that patient follow up with him out patient.No osteomyelitis noted on imaging. Subjective Review of Systems Constitutional: Denies fever no chills no feeling of malaise HEENT: Denies headache, ear pain, ear discharges, conjunctivitis, nasal discharge throat pain Cardiovascular: Denies chest pain, palpitation, orthopnea, PND, or pedal edema Respiratory: Denies shortness of breath, cough cough, sputum production, hemoptysis, GI: Denies abdominal pain, nausea, vomiting, diarrhea, hematemesis, hematochezia, : Denies frequency, urgency, hematuria, Endocrine: Denies unintentional weight gain or weight loss, feeling of hot flashes, Rashard: Denies easy bruising, bleeding disorders, epistaxis Musculoskeletal: joint pains, muscle aches, no or mild sensation, pain on join movement Psych: No evidence of depression, arvin, suicidal ideation Objective vital signs Vital Sign Date Time Temp Pulse Resp B/P (MAP) Pulse Ox O2 Delivery O2 Flow Rate FiO2 07/12/24 16:32 97.5 65 19 104/52 (69) 97 97.5 07/12/24 08:00 Room Air* 0 21 Total Intake and Output 07/11/24 07/11/24 07/12/24 15:00 23:00 07:00 Intake Total 100 ml 600 ml 750 ml Balance 100 ml 600 ml 750 ml medications Current Medications Medications Dose Ordered Sig/Vinny Route Start Time Stop Time Status Last Admin Dose Admin Acetaminophen 325 mg Q4HP PRN PO 07/11/24 01:15 07/11/24 13:48 325 MG Ondansetron HCl 4 mg Q4HP PRN IV 07/11/24 01:15 Pantoprazole Sodium 40 mg DAILY@0600 PO 07/11/24 06:00 07/12/24 06:41 40 MG Amiodarone HCl 200 mg DAILY PO 07/11/24 10:00 07/12/24 10:07 200 MG Tramadol HCl 50 mg Q6HP PRN PO 07/11/24 01:30 07/11/24 21:58 50 MG Daptomycin 300 mg/ Sodium Chloride 50 ml @ 100 mls/hr DAILY@1100 IV 07/11/24 11:00 07/12/24 11:26 100 MLS/HR Apixaban 5 mg BID PO 07/11/24 22:00 07/12/24 10:07 5 MG Baclofen 20 mg TID PO 07/11/24 14:00 07/12/24 06:40 20 MG Losartan Potassium 100 mg DAILY PO 07/12/24 10:00 Mupirocin 1 applic BID TOP 07/11/24 15:33 07/11/24 22:00 1 APPLIC Ceftriaxone Sodium 50 ml @ 100 mls/hr DAILY@09 IV 07/12/24 09:00 07/12/24 08:30 100 MLS/HR Duloxetine HCl 60 mg BID PO 07/11/24 22:00 07/11/24 21:57 60 MG Gabapentin 300 mg TID PO 07/11/24 17:00 07/12/24 06:41 300 MG Examination General Appearance: Alert, Oriented X3, Cooperative, No acute distress, improving HEENT: Atraumatic, PERRLA, EOMI, Mucous membrane moist/pink Respiratory: Clear to auscultation, Normal air movement Cardiovascular: Regular rate, Normal S1, Normal S2, systolic murmurs heard, no chest wall tenderness Abdominal: NO distention, no tenderness, bowel sounds present, no scars noted Extremities: bilateral lower extremity, erythema, Mild non-pitting edema, Multiple eschars, pulse present though faint, wheelchair bound Skin: dry, scale with mild erythema and some maceration, warm to touch, Neuro: Normal gait, Normal speech, Strength at 5/5 X4 ext, Normal tone, Sensation intact, Cranial nerves 3-12 NL, Reflexes 2+ Psych/Mental Status: Mental status NL, Mood NL laboratory and microbiology Laboratory Tests 07/12/24 05:43 Test 07/12/24 05:43 Range/Units Serum Glucose 84 74-106 mg/dL Microbiology Date/Time Source Procedure Growth Status 07/11/24 14:00 Blood Blood Culture - Preliminary NO GROWTH AFTER 24 HOURS OF INCUBATION. Resulted 07/11/24 10:10 Coccyx Gram Stain - Final Resulted 07/11/24 10:10 Coccyx Wound Culture - Preliminary Resulted Problem List/Assessment/Plan Problem List/Assessment/Plan Assessment Superficial skin infection, Right legs --> Likely Erysipelas --> Possible contact dermatitis --> Cover with mupirocin --> ceftriaxone, daptomycin Stasis dermatitis bilateral --> Recommended vascular surgery evaluation outpatient Multiple sacral wounds, POA - wound consult - wound culture History of atrial fibrillation Hypercoagulable state secondary to above - therapeutic Lovenox - per patient last dose of Eliquis home medication was on 07/10/2024 in the a.m. - resumed home medication amiodarone 200 mg p.o. 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 - IV NS 500 cc - ordered urine sodium, urine creatinine - monitor Severe peripheral neuropathy - resumed home medication tramadol Hypertension Hypertensive heart disease Prediabetes?, A1c 5.8 on 06/06/2024 - holding home antihypertensives as blood pressure on the soft side - echocardiogram from 06/07/2024 shows EF 65%, left atrium enlarged. No severe valve abnormalities noted. UTI --> continue antibiotic --> Obesity grade 1 --> BMI: 30.5 History of Rheumatic fever PUD prophylaxis: protonix 40mg Goals of care: Chemical code, discussed for >16 minutes: Chemical code Case and plan discussed + Dr. Quiroga Plan discussed with: Patient My Orders My Orders Orders - DAVIS NEWMAN Procedure Category Date Status Time Duloxetine Hcl PHA 07/11/24 In Process Capsule (Cymbalta 22:00 Gabapentin Capsule PHA 07/11/24 In Process (Neurontin Capsule) 17:00 Hemoglobin A1c LAB 07/13/24 Verified 04:00 Dietary Evaluation Review Comments: Encoruage and monitor PO intake to meet 75% of her needs Protein supplementation, Ensure EnLive BID Dillon BID for wound healing. Expected Outcomes/Goals: healed wounds, gradual wt loss Date of Service: July 12, 2024 Billing Provider: ZEHRA QUIROGA MD Common Visit Codes: [id number] INP/OBS CARE(HIGH) DAVIS NEWMAN July 12, 2024 17:10 ZEHRA QUIROGA MD July 13, 2024 19:24
[2024-07-12 21:00] VITALS: BP 126/70; PULSE 76; RESP 16; TEMP 98.5; O2SAT 92
[2024-07-13 05:00] VITALS: BP 139/57; PULSE 83; RESP 16; TEMP 98; O2SAT 90
[2024-07-13 09:00] VITALS: BP 116/50; PULSE 83; RESP 19; TEMP 98.1; O2SAT 94
[2024-07-13] MEDS: traMADol HCL 50 MG TAB PO PRN (11:44)
[2024-07-13] MEDS ORDERED: PIPERACILLIN-TAZOB 3.375GM 100 ML IV SCH (12:00)
[2024-07-13] MEDS: CEFEPIME 1GM/ 50ML 50 ML IV ONE (13:04)
[2024-07-13] MEDS ORDERED: CEFEPIME 1GM/ 50ML 50 ML IV SCH ×2 (14:00→22:00)
[2024-07-13] MEDS ORDERED: MUPI2OIN2 TOP (16:22)
[2024-07-13] MEDS ORDERED: CIP500T PO (16:22)
[2024-07-13] MEDS ORDERED: ACET-1882 PO (16:22)
[2024-07-13 17:00] VITALS: BP 108/49; PULSE 82; RESP 19; TEMP 98.5; O2SAT 96
--- NOTE | 2024-07-13 19:05 | DVHDSRES ---
Discharge Summary Date of Admission Resident Creating Document: DAVIS NEWMAN RESIDENT Jul 11, 2024 at 01:11 Date of Discharge: July 13, 2024 Admitting Diagnosis Bilateral lower extremity blistering lesions Wounds: Multi open full thickness ulceration noted to her Lt and Rt sacrum down to her Rt and left posterior upper thighs. Labs/Diagnostic Data: PATIENT: ELISA SOUTH ACCT: [id number] UNIT: [id number] : 1940 LOC: ER ROOM / BED: / AGE / SEX: 84 / F ADM STATUS: REG ER SERVICE 02 ORDERING PHYSICIAN: JUSTINA GAGE MD PROCEDURE(s): BLDVT - BiLat Lower DVT REASON: ble edema ORDER NUMBER(s): [id number], ACCESSION NUMBER(s): [id number] Bilateral lower extremity venous duplex Clinical History: ble edema Comparison: None Technique: Duplex Doppler evaluation of the deep venous systems of both lower extremities from the common femoral veins to the popliteal veins including color Doppler and spectral/pulsed waveform analysis was performed. Findings: RIGHT SIDE: The common femoral vein demonstrates appropriate compressibility and waveform variability. There is compressibility/patency of the great saphenous vein at the proximal thigh. The femoral vein demonstrates appropriate compressibility and waveform variability. The deep femoral vein demonstrates appropriate compressibility and waveform variability. The popliteal vein demonstrates appropriate compressibility and waveform variability. There is color flow at the tibioperoneal trunk and in the posterior tibial vein. LEFT SIDE: The common femoral vein demonstrates appropriate compressibility and waveform variability. There is compressibility/patency of the great saphenous vein at the proximal thigh. The femoral vein demonstrates appropriate compressibility and waveform variability. The deep femoral vein demonstrates appropriate compressibility and waveform variability. The popliteal vein demonstrates appropriate compressibility and waveform variability. There is color flow at the tibioperoneal trunk and in the posterior tibial vein. Impression: 1. No right or left femoropopliteal venous thrombosis. ATED BY: MINERVA DUBON MD DICTATED DATE/TIME: 07/10/242041 PATIENT: ELISA [facility] ACCT: [id number] UNIT: [id number] : 1940 LOC: ER ROOM / BED: / AGE / SEX: 84 / F ADM STATUS: REG ER SERVICE 02 ORDERING PHYSICIAN: JUSTINA GAGE MD PROCEDURE(s): CXRP - CHEST PORTABLE REASON: edema ORDER NUMBER(s): [id number], ACCESSION NUMBER(s): [id number] CHEST RADIOGRAPH Indication: edema Technique: Single frontal view of the chest was obtained Comparison: None FINDINGS: Lines and Tubes: None Lungs: No focal consolidation. Mild Interstitial prominence. Pleura: No effusion. No pneumothorax. Cardiomediastinal contours: Mild cardiomegaly with moderate atherosclerotic calcification and uncoiling of the aorta. Bones: No acute osseous abnormality. IMPRESSION: Mild pulmonary vascular congestion. ATED BY: MANA ROSARIO DO DICTATED DATE/TIME: 07/10/242038 Laboratory Results Test 07/12/24 05:46 07/12/24 05:43 07/11/24 15:20 07/11/24 14:00 Hemoglobin A1c 5.9 % A1C (<5.7) White Blood Count 8.5 10^3/uL (4.4-10.8) Red Blood Count 4.01 10^6/uL (4.0-5.20) Hemoglobin 12.0 g/dL (12.2-16.2) Hematocrit 36.0 % (36.0-46.0) Mean Corpuscular Volume 89.9 fL (80.0-100.0) Mean Corpuscular Hemoglobin 29.8 pg (28.0-32.0) Mean Corpuscular Hemoglobin Concent 33.2 g/dL (32.0-36.0) Red Cell Distribution Width 14.0 % (11.8-14.3) Platelet Count 391 10^3/uL (140-450) Mean Platelet Volume 8.1 fL (6.9-10.8) Neutrophils (%) (Auto) 56.9 % (37.0-80.0) Lymphocytes (%) (Auto) 26.8 % (10.0-50.0) Monocytes (%) (Auto) 9.7 % (0.0-12.0) Eosinophils (%) (Auto) 5.8 % (0.0-7.0) Basophils (%) (Auto) 0.8 % (0.0-2.0) Neutrophils # (Auto) 4.8 10 ^3/uL (1.6-8.6) Lymphocytes # (Auto) 2.3 10 ^3/uL (0.4-5.4) Monocytes # (Auto) 0.8 10 ^3/uL (0-1.3) Eosinophils # (Auto) 0.5 10 ^3/uL (0-0.8) Basophils # (Auto) 0.1 10 ^3/uL (0-0.2) Nucleated Red Blood Cells 0.0 % Sodium Level 143 mmol/L (136-145) Potassium Level 3.8 mmol/L (3.5-5.1) Chloride Level 112 mmol/L (98-107) Carbon Dioxide Level 26 mmol/L (20-31) Anion Gap 5 (5-15) Blood Urea Nitrogen 18 mg/dL (9-23) Creatinine 0.76 mg/dL (0.550-1.02) Glomerular Filtration Rate Calc 78 mL/min (>90) BUN/Creatinine Ratio 23.7 (10.0-20.0) Serum Glucose 84 mg/dL (74-106) Calcium Level 9.0 mg/dL (8.7-10.4) Urine Color Light-yellow (Yellow) Urine Clarity Turbid (Clear) Urine pH 6.5 (5.0-9.0) Urine Specific [place] 1.021 (1.001-1.035) Urine Protein Trace (Negative) Urine Ketones Negative (Negative) Urine Blood 2+ /uL (Negative) Urine Nitrite Negative (Negative) Urine Bilirubin Negative (Negative) Urine Urobilinogen Normal mg/dL (Negative) Urine Leukocyte Esterase 1+ /uL (Negative) Urine RBC 20 /hpf (0 - 4) Urine Microscopic WBC 15 /HPF (0-5) Urine Squamous Epithelial Cells Few /hpf (<5) Urine Bacteria None seen /hpf (None Seen) Urine Yeast (Budding) Occasional /hpf (None Urine Creatinine 56.20 mg/dL (30.0-125.0) Urine Sodium 136 mmol/L (40-220) Urine Glucose Trace mg/dL (Normal) Lactic Acid Level 1.8 mmol/L (0.4-2.0) Test 07/11/24 09:19 07/10/24 19:14 07/10/24 18:20 Total Bilirubin 0.5 mg/dL (0.2-1.0) Aspartate Amino Transferase (AST) 17 U/L (13-40) Alanine Aminotransferase (ALT) 12 U/L (7-40) Alkaline Phosphatase 86 U/L (46-116) Total Protein 5.1 g/dL (5.7-8.2) Albumin 3.0 g/dL (3.2-4.8) Troponin I High Sensitivity 8 ng/L (</=34) B-Type Natriuretic Peptide 41.62 pg/mL (0-100) Other Laboratory Tests 07/12/24 05:43 Brief Hx & Hospital Course: History of Present Illness Patient is an 84-year-old wheelchair-bound female with past medical history of hypertension, atrial fibrillation, severe peripheral neuropathy, chronic venous stasis, lower extremity cellulitis, dyslipidemia, rectal prolapse, who comes in due to bilateral lower extremity blistering lesions. Per patient, she was discharged from the [facility] on 06/12/2024 after being treated for bilateral lower extremity cellulitis. According to the patient, she noticed increasing blisters on bilateral lower extremities that bursted and started draining, patient says it seemed infected and she talked to her PCP who recommended that she goes to the hospital which is what prompted this visit. On review of systems patient is complaining of chills and constipation. Past Medical History: hypertension, atrial fibrillation, severe peripheral neuropathy, chronic venous stasis, lower extremity cellulitis, dyslipidemia, rectal prolapse, history of rheumatic fever as a child Past Surgical History: Cholecystectomy, D and C, tonsillectomy, adenoidectomy Social history: Denies smoking, alcohol and other drugs use. She lives alone but has nurse, PT and step children who comes to visit. Brief Hospital course This is an 84-year-old female wheelchair-bound with a history of hypertension AFib, neuropathy recent history of bilateral cellulitis presented yesterday with bilateral lower extremity redness, pain and open wound. According to the patient, she had a blister on her right foot that broke open and then lead to open wound and it was a similar thing that happened with left foot as well. According to the patient, She is wheelchair bound at baseline. She had weakness on her legs, but since her in 04/2024 spent so much in bed and that made her weakness worse. She was managed for cellulitis in May 2024 at [facility] and present with similar concerns. She has bilateral erythema, open wound and sores R>L. She was tachycardic early and her bp is running low BP at 80/56 and running low. Wound care saw patient and recommended regular wound dressing and continue antibiotics. Podiatry also saw patient and recommended not surgical intervention at this time but to follow up outpatient. While on admission, patient's was a little drowsy, so will her tramadol was discontinued. Will continue to hold until she follow up with her PCP. Patient's wound culture came back with sensitivity. Antibiotics were adjusted according to the sensitivity of the microorganism. Patient looking better. Leg pain is better. Wound dressing in place. Patient said she has home health that comes to visit at home for wound care. She also had PT. Will discharge home today on antibiotics her home medications Review of Systems Constitutional: Denies fever no chills no feeling of malaise HEENT: Denies headache, ear pain, ear discharges, conjunctivitis, nasal discharge throat pain Cardiovascular: Denies chest pain, palpitation, orthopnea, PND, or pedal edema Respiratory: Denies shortness of breath, cough cough, sputum production, hemoptysis, GI: Denies abdominal pain, nausea, vomiting, diarrhea, hematemesis, hematochezia, : Denies frequency, urgency, hematuria, Endocrine: Denies unintentional weight gain or weight loss, feeling of hot flashes, Rashard: Denies easy bruising, bleeding disorders, epistaxis Musculoskeletal: joint pains, muscle aches, no or mild sensation, pain on join movement Psych: No evidence of depression, arvin, suicidal ideation Examination General Appearance: Alert, Oriented X3, Cooperative, No acute distress HEENT: Atraumatic, PERRLA, EOMI, Mucous membrane moist/pink Respiratory: Clear to auscultation, Normal air movement Cardiovascular: Regular rate, Normal S1, Normal S2, systolic murmurs heard, no chest wall tenderness Abdominal: NO distention, no tenderness, bowel sounds present, no scars noted Extremities: bilateral lower extremity, erythema, Mild non-pitting edema, Multiple eschars, pulse present though faint, wheelchair bound Skin: dry, scale with mild erythema and some maceration, warm to touch, Neuro: Normal gait, Normal speech, Strength at 5/5 X4 ext, Normal tone, Sensation intact, Cranial nerves 3-12 NL, Reflexes 2+ Psych/Mental Status: Mental status NL, Mood NL Diagnoses Superficial skin infection, Right legs Likely Erysipelas Possible contact dermatitis Stasis dermatitis bilateral Multiple sacral wounds, POA History of atrial fibrillation Hypercoagulable state secondary to above Probable YOSELYN, hemodynamically mediated/VMN on CKD II? Severe peripheral neuropathy Hypertension Hypertensive heart disease Prediabetes?, A1c 5.8 on 06/06/2024 UTI Obesity grade 1 History of Rheumatic fever Discharge plan Continue antibiotics ( Ciprofloxacin) as directed Continue home medications except Tramadol, Continue wound care and Home health follow up with PCP Report to the ED if she continues to feel unwell. Discharge plan discussed with Dr. Olivia Consults/Reason for consult Reason for Consultation Bilateral lower extremity cellulitis Condition at Discharge: Stable Final Diagnosis/Problems List Superficial skin infection, Right legs Stasis dermatitis bilateral Multiple sacral wounds, POA History of atrial fibrillation Hypercoagulable state secondary to above Probable YOSELYN, hemodynamically mediated/VMN on CKD II? Severe peripheral neuropathy Hypertension Hypertensive heart disease Prediabetes?, A1c 5.8 on 06/06/2024 UTI Obesity grade 1,BMI: 30.5 History of Rheumatic fever Discharge Disposition: Home Discharge Instruct/Medications Diet: Cardiac 2g Na,low cholest Activity: Light activity Follow Up/Referral: 1 week follow with PCP Medications: Ciprofloxacin Home medication Hold tramadol due to patient being drowsy yesterday Discharge Statement: "Patient was advised to return to the ER or call 911 if any headaches, dizziness, shortness of breath, chest pain, abdominal pain, bleeding, fevers, or worsening of medical condition. Patient was counseled about treatment plan, medications, possible side effects, patientverbalized understanding. All questions were answered to the best of my ability. This discharge took greater then 30 minutes in planning, reviewing documentation, counseling the patient, and discussing with other team members." ASSESSMENT ASSESSMENT Assessment Superficial skin infection, Right legs Stasis dermatitis bilateral Multiple sacral wounds, POA History of atrial fibrillation Hypercoagulable state secondary to above Probable YOSELYN, hemodynamically mediated/VMN on CKD II? Severe peripheral neuropathy Hypertension Hypertensive heart disease Prediabetes?, A1c 5.8 on 06/06/2024 UTI Obesity grade 1,BMI: 30.5 History of Rheumatic fever Date of Service: July 13, 2024 Billing Provider: ZEHRA OLIVIA MD Common Visit Codes: 22541-VCN/OBS DISCH DAY >30min DAVIS NEWMAN RESIDENT July 13, 2024 19:05 ZEHRA OLIVIA MD July 13, 2024 19:35
[2024-07-13 21:00] VITALS: BP 99/50; PULSE 87; RESP 18; TEMP 98.2; O2SAT 98
[2024-07-13] MEDS: CEFEPIME 1GM/ 50ML 50 ML IV SCH (21:43)
[2024-07-14 01:00] VITALS: BP 98/52; PULSE 80; RESP 18; TEMP 98; O2SAT 96
[2024-07-14 09:00] VITALS: BP 112/50; PULSE 76; RESP 20; TEMP 98.6; O2SAT 90
--- NOTE | 2024-07-14 15:24 | DVHPN2 ---
Eyes: No Pain, No Vision change, No Conjunctivae inflammation, No Eyelid inflammation, No Other, No Redness ENT: No Ear pain, No Ear discharge, No Nose pain, No Nose discharge, No Nose congestion, No Mouth pain, No Mouth swelling, No Throat pain, No Throat swelling, No Other Cardiovascular: No Chest Pain, No Palpitations, No Orthopnea, No Paroxysmal Noc. Dyspnea, No Edema, No Lt Headedness, No Other Respiratory: No Cough, No Dry, No Shortness of breath, No SOB with excertion, No Wheezing, No Hemoptysis, No Pleuritic Pain, No Sputum, No Other Gastrointestinal: No Nausea, No Vomiting, No Abdominal Pain, No Diarrhea; C onstipation; No Melena, No Hematochezia, No Other Genitourinary: No Dysuria, No Frequency, No Incontinence, No Hematuria, No Retention, No Other Musculoskeletal: No other, No neck pain, No shoulder pain, No arm pain, No back pain, No hand pain, No leg pain, No foot pain Skin: No Rash, No Lesions, No Jaundice, No Bruising, No Other Objective Vitals Vital Signs Date Time Temp Pulse Resp B/P (MAP) Pulse Ox O2 Delivery O2 Flow Rate FiO2 07/14/24 10:50 112/50 07/14/24 09:00 98.6 76 20 90 98.6 07/13/24 20:00 Room Air* 0 21 Intake/Output Intake and Output 07/14/24 07:00 Intake Total 750 ml Balance 750 ml Intake Oral 650 ml IV Total 100 ml # Voids 4 # Bowel Movements 1 Medications Current Medications Medications Dose Ordered Sig/Vinny Route Start Time Stop Time Status Last Admin Dose Admin Acetaminophen 325 mg Q4HP PRN PO 07/11/24 01:15 07/14/24 06:05 325 MG Ondansetron HCl 4 mg Q4HP PRN IV 07/11/24 01:15 Pantoprazole Sodium 40 mg DAILY@0600 PO 07/11/24 06:00 07/14/24 05:31 40 MG Amiodarone HCl 200 mg DAILY PO 07/11/24 10:00 07/14/24 10:51 200 MG Apixaban 5 mg BID PO 07/11/24 22:00 07/14/24 10:51 5 MG Baclofen 20 mg TID PO 07/11/24 14:00 07/14/24 05:31 20 MG Losartan Potassium 100 mg DAILY PO 07/12/24 10:00 07/14/24 10:50 100 MG Mupirocin 1 applic BID TOP 07/11/24 15:33 07/14/24 14:00 1 APPLIC Duloxetine HCl 60 mg BID PO 07/11/24 22:00 07/14/24 10:49 60 MG Gabapentin 300 mg TID PO 07/11/24 17:00 07/14/24 05:31 300 MG Cefepime HCl 50 ml @ 12.5 mls/hr Q12HR IV 07/13/24 22:00 07/14/24 10:48 12.5 MLS/HR Laboratory Results Laboratory Tests 07/12/24 05:43 Urinalysis Test 07/11/24 15:20 Urine Color Light-yellow (Yellow) Urine Clarity Turbid (Clear) H Urine pH 6.5 (5.0-9.0) Urine Specific [place] 1.021 (1.001-1.035) Urine Protein Trace (Negative) H Urine Ketones Negative (Negative) Urine Blood 2+ /uL (Negative) H Urine Nitrite Negative (Negative) Urine Bilirubin Negative (Negative) Urine Urobilinogen Normal mg/dL (Negative) Urine Leukocyte Esterase 1+ /uL (Negative) Urine RBC 20 /hpf (0 - 4) Urine Microscopic WBC 15 /HPF (0-5) H Urine Squamous Epithelial Cells Few /hpf (<5) Urine Bacteria None seen /hpf (None Seen) Urine Yeast (Budding) Occasional /hpf (None Urine Creatinine 56.20 mg/dL (30.0-125.0) Urine Sodium 136 mmol/L (40-220) Urine Glucose Trace mg/dL (Normal) Microbiology Microbiology Date/Time Source Procedure Growth Status 07/11/24 14:00 Blood Blood Culture - Preliminary NO GROWTH AFTER 72 HOURS OF INCUBATION. 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
[2024-07-14] MEDS ORDERED: CLIN150C PO (15:25)
[2024-07-14 16:56] VITALS: BP 124/56; PULSE 71; RESP 16; TEMP 98.1; O2SAT 95
[2024-07-14 20:00] VITALS: PULSE 75; RESP 18; O2SAT 97
[2024-07-14 21:00] VITALS: BP 94/48; PULSE 75; RESP 18; TEMP 98.4; O2SAT 97
[2024-07-15 01:00] VITALS: BP 111/52; PULSE 71; RESP 18; TEMP 98.4; O2SAT 95
[2024-07-15 05:00] VITALS: BP 93/40; PULSE 73; RESP 18; TEMP 98.1; O2SAT 96
[2024-07-15] MEDS: PANTOPRAZOLE 40 MG TAB PO ONE (08:00)
[2024-07-15 09:00] VITALS: BP 126/60; PULSE 78; RESP 18; TEMP 97.9; O2SAT 97
[2024-07-15 09:39] VITALS: BP 93/40; PULSE 73; RESP 18; TEMP 98.1; O2SAT 96
--- NOTE | 2024-07-15 23:39 | DVHPNRES ---
Progress Note Date Seen: July 15, 2024 Resident Creating Document: DAVIS NEWMAN RESIDENT Has the PT tested + for MRSA If YES, has PT been informed?: No Medical Necessity Reason Pt with a Central, PICC or Fol: No Medical Necessity Reason History of Present Illness Patient is an 84-year-old wheelchair-bound female with past medical history of hypertension, atrial fibrillation, severe peripheral neuropathy, chronic venous stasis, lower extremity cellulitis, dyslipidemia, rectal prolapse, who comes in due to bilateral lower extremity blistering lesions. Per patient, she was discharged from the [facility] on 06/12/2024 after being treated for bilateral lower extremity cellulitis. According to the patient, she noticed increasing blisters on bilateral lower extremities that bursted and started draining, patient says it seemed infected and she talked to her PCP who recommended that she goes to the hospital which is what prompted this visit. On review of systems patient is complaining of chills and constipation. Past Medical History: hypertension, atrial fibrillation, severe peripheral neuropathy, chronic venous stasis, lower extremity cellulitis, dyslipidemia, rectal prolapse, history of rheumatic fever as a child Past Surgical History: Cholecystectomy, D and C, tonsillectomy, adenoidectomy Social history: Denies smoking, alcohol and other drugs use. She lives alone but has nurse, PT and step children who comes to visit. PN: 07/11/2024 This is an 84-year-old female wheelchair-bound with a history of hypertension AFib, neuropathy recent history of bilateral cellulitis presented yesterday with bilateral lower extremity redness, pain and open wound. According to the patient, she had a blister on her right foot that broke open and then lead to open wound and is the similar thing with the left foot as well. According to the patient, She is wheelchair bound at baseline. She had weakness on her legs,but since her in 04/2024 spent so much in bed and that made her weakness worse. She managed for cellulitis in May 2024. Patient to the ED with similar problem of bilateral erythema, open wound and sores. She was tachycardic early and her bp is running low BP at 80/56 and running low. Hgb; 13.1 lactic acid is 1. UA and blood culture are pending. She is currently on Daptomycin and Ertapenem based on her last wound culture and sensitivity. PN 07/12/2024 Patient was seen today. She was sleeping at the time of our visit. Her left midfoot draining wound in the left midfoot. Her wound is more superficial. wound consult is on board for wound dressing and she is antibiotics.Her pain level is going down. Podiatry advised that patient follow up with him out patient.No osteomyelitis noted on imaging. pn 07/15/2024 Patient was discharge on 07/14/2023. But she did not go because she said her home health nurse would not be available to Tuesday. Unfortunately patient was not sent home due to miscommunication. I reviewed the patient's chart to day. she is going home with oral medication. Told patient to hold off the tramadol as it seems to be making her sleeping or drowsy. She id to follow up with her PCP for tramadol adjustment. Subjective Review of Systems Constitutional: Denies fever no chills no feeling of malaise HEENT: Denies headache, ear pain, ear discharges, conjunctivitis, nasal discharge throat pain Cardiovascular: Denies chest pain, palpitation, orthopnea, PND, or pedal edema Respiratory: Denies shortness of breath, cough cough, sputum production, hemoptysis, GI: Denies abdominal pain, nausea, vomiting, diarrhea, hematemesis, hematochezia, : Denies frequency, urgency, hematuria, Endocrine: Denies unintentional weight gain or weight loss, feeling of hot flashes, Rashard: Denies easy bruising, bleeding disorders, epistaxis Musculoskeletal: joint pains, muscle aches, no or mild sensation, pain on join movement Psych: No evidence of depression, arvin, suicidal ideation Objective vital signs Vital Sign Date Time Temp Pulse Resp B/P (MAP) Pulse Ox O2 Delivery O2 Flow Rate FiO2 07/15/24 09:39 98.1 73 18 96 07/15/24 09:00 126/60 (82) 07/15/24 07:54 Room Air* 0 21 Total Intake and Output 07/14/24 07/14/24 07/15/24 15:00 23:00 07:00 Intake Total 50 ml 340 ml 170 ml Balance 50 ml 340 ml 170 ml Examination General Appearance: Alert, Oriented X3, Cooperative, No acute distress, improving HEENT: Atraumatic, PERRLA, EOMI, Mucous membrane moist/pink Respiratory: Clear to auscultation, Normal air movement Cardiovascular: Regular rate, Normal S1, Normal S2, systolic murmurs heard, no chest wall tenderness Abdominal: NO distention, no tenderness, bowel sounds present, no scars noted Extremities: bilateral lower extremity, erythema, Mild non-pitting edema, Multiple eschars, pulse present though faint, wheelchair bound Skin: dry, scale with mild erythema and some maceration, warm to touch, Neuro: Normal gait, Normal speech, Strength at 5/5 X4 ext, Normal tone, Sensation intact, Cranial nerves 3-12 NL, Reflexes 2+ Psych/Mental Status: Mental status NL, Mood NL laboratory and microbiology Laboratory Tests 07/12/24 05:43 Test 07/12/24 05:43 Range/Units Serum Glucose 84 74-106 mg/dL Microbiology Date/Time Source Procedure Growth Status 07/11/24 14:00 Blood Blood Culture - Preliminary NO GROWTH AFTER 72 HOURS OF INCUBATION. Resulted 07/11/24 10:10 Coccyx Gram Stain - Final Complete 07/11/24 10:10 Wound Culture - Final Pseudomonas aeruginosa Klebsiella pneumoniae Enterococcus faecalis - VRE Presumptive Akila albicans Complete Problem List/Assessment/Plan Problem List/Assessment/Plan Assessment Superficial skin infection, Right legs --> Likely Erysipelas --> Possible contact dermatitis --> Cover with mupirocin --> ceftriaxone, daptomycin Stasis dermatitis bilateral --> Recommended vascular surgery evaluation outpatient Multiple sacral wounds, POA - wound consult - wound culture History of atrial fibrillation Hypercoagulable state secondary to above - therapeutic Lovenox - per patient last dose of Eliquis home medication was on 07/10/2024 in the a.m. - resumed home medication amiodarone 200 mg p.o. 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 - IV NS 500 cc - ordered urine sodium, urine creatinine - monitor Severe peripheral neuropathy - resumed home medication tramadol Hypertension Hypertensive heart disease Prediabetes?, A1c 5.8 on 06/06/2024 - holding home antihypertensives as blood pressure on the soft side - echocardiogram from 06/07/2024 shows EF 65%, left atrium enlarged. No severe valve abnormalities noted. UTI --> continue antibiotic Obesity grade 1 --> BMI: 30.5 History of Rheumatic fever Hold tramadol until you talk to your PCP. As is making her drowsy Discharged home today PUD prophylaxis: protonix 40mg Goals of care: Chemical code, discussed for >16 minutes: Chemical code Case and plan discussed + Dr. VALLECILLO Plan discussed with: Patient Dietary Evaluation Review Comments: Encoruage and monitor PO intake to meet 75% of her needs Protein supplementation, Ensure EnLive BID [place] BID for wound healing. Expected Outcomes/Goals: healed wounds, gradual wt loss DAVIS NEWMAN RESIDENT July 15, 2024 23:38
--- NOTE | 2024-07-17 10:46 | ECG ---
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
== END 2024-07-15 11:45 | disposition home health service (06) | DRG 602 ==
LOC: EDBD 17:26 → ER 17:35 → CENTRAL 23:45 → OVERFLOW 07-11 01:11 → ER 07-11 01:26 → CENTRAL 07-11 02:53
PROVIDERS: ADMIT Internal Medicine; ATTEND Emergency Medicine
DX: A46 Erysipelas (principal); L89.153 Pressure ulcer of sacral region, stage 3; N17.0 Acute kidney failure with tubular necrosis; L89.313 Pressure ulcer of right buttock, stage 3; L03.115 Cellulitis of right lower limb; L03.116 Cellulitis of left lower limb; N39.0 Urinary tract infection, site not specified; D68.59 Other primary thrombophilia; S90.822A Blister (nonthermal), left foot, initial encounter; S90.821A Blister (nonthermal), right foot, initial encounter; I87.2 Venous insufficiency (chronic) (peripheral); G62.9 Polyneuropathy, unspecified; E66.9 Obesity, unspecified; L25.9 Unspecified contact dermatitis, unspecified cause; I87.8 Other specified disorders of veins; L97.529 Non-pressure chronic ulcer of other part of left foot with unspecified severity; X58.XXXA Exposure to other specified factors, initial encounter; K59.00 Constipation, unspecified; I48.91 Unspecified atrial fibrillation; Z99.3 Dependence on wheelchair; Z88.1 Allergy status to other antibiotic agents; Z88.0 Allergy status to penicillin; Z79.899 Other long term (current) drug therapy; Z90.49 Acquired absence of other specified parts of digestive tract; Z83.3 Family history of diabetes mellitus; Y93.89 Activity, other specified; Y92.89 Other specified places as the place of occurrence of the external cause; Y99.8 Other external cause status; Z68.30 Body mass index [BMI] 30.0-30.9, adult; R73.03 Prediabetes; I11.9 Hypertensive heart disease without heart failure
CPT/HCPCS: 36415; 71045; 80048; 80053; 81001; 82570; 83036; 83605; 83880; 84300; 84484; 85025; 87040; 87077; 87186; 87205; 93005; 93970; 97110; 97163; 97530; G0378; J1335

== ENCOUNTER 2024-08-11 16:32 | Inpatient (IN) | payer MEDICARE, OTHER ==
[~2024-08-11] VITALS: Ht 170.2 cm; Wt 82.8 kg
[~2024-08-11 16:32] MED LIST: ACET-1882 PO; AMIO200T33 PO; APIX5TAB PO; BACL10TA PO; BACL20TA PO; CLIN150C PO; DULO60CA41 PO; GABA-1250 PO; LOSA-535 PO; MUPI2OIN2 TOP; PREG100C PO
[2024-08-11 17:29] VITALS: PULSE 93; RESP 13; O2SAT 94
[2024-08-11] MEDS: ACETAMINOPHEN IV 1000 MG/100ML (10MG/ML) IV ONE (17:57)
[2024-08-11 18:06] LABS: Basophils # (auto) 0.2 10 ^3/uL (0-0.2); Basophils % (auto) 1.6 % (0.0-2.0); Eosinophils # (auto) 0.2 10 ^3/uL (0-0.8); Eosinophils % (auto) 2.1 % (0.0-7.0); Hemoglobin 12.3 g/dL (12.2-16.2); Lymphocytes # (auto) 1.6 10 ^3/uL (0.4-5.4); Lymphocytes % (auto) 13.8 % (10.0-50.0); Mean Corpuscular Hemoglobin 29.3 pg (28.0-32.0); Mean Corpuscular Hgb Conc. 32.5 g/dL (32.0-36.0); Mean Corpuscular Volume 90.3 fL (80.0-100.0); Monocytes # (auto) 0.9 10 ^3/uL (0-1.3); Neutrophils # (auto) 8.7 10 ^3/uL (1.6-8.6); Neutrophils % (auto) 74.5 % (37.0-80.0); Nucleated Red Blood Cells % 0.1 %; Platelet Count (auto) 480 10^3/uL (140-450); Red Blood Cells 4.21 10^6/uL (4.0-5.20); Red Cell Distribution Width 14.3 % (11.8-14.3); White Blood Cell 11.7 10^3/uL (4.4-10.8)
--- NOTE | 2024-08-11 18:11 | ED.PDOC ---
History of Present Illness(SKN HPI Comments 84y F who presents to the ED via EMS for chief complaint of wound check. EMS states pt has wounds to the bilateral buttock area for the past 2-3 weeks. Pt states she noticed increased bleeding today and was concerned with the R side due to increased pain and called EMS. Pt is otherwise wheelchair bound due to bilateral lower extremity wounds and associated neuropathy. Pt in the ED, otherwise rates her pain 8/0, constant, with no associated exacerbating or relieving factors. 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, Medications, Allergies Allergies: Coded Allergies: Cephalexin (Verified Allergy, Unknown, 07/10/24) Penicillins (Verified Allergy, Unknown, 07/10/24) Home Meds Active Scripts Clindamycin Hcl (CLEOCIN) 150 Mg Cap, 1 CAP PO TID, #30 CAP Prov:KAY VALLECILLO MD 07/14/24 Acetaminophen (Acetaminophen) 325 Mg Tab, 325 MG PO Q4HP PRN for 14 Days, #70 TAB Prov:DAVIS NEWMAN RESIDENT 07/13/24 Mupirocin (Pseudomonas Fluores (Mupirocin) 2 % Oin, 1 APPLIC TOP BID for 7 Days, #1 OIN Prov:DAVIS NEWMAN RESIDENT 07/13/24 Reported Medications Amiodarone Hcl (Amiodarone Hcl) 200 Mg Tab, 200 MG PO DAILY for 30 Days 07/11/24 Duloxetine Hcl (Cymbalta) 60 Mg Cap, 1 CAP PO TID, #90 CAP 3 Refills 07/11/24 Gabapentin (Gabapentin) 300 Mg Cap, 300 MG PO TID for 30 Days, MG 07/11/24 Pregabalin (Lyrica) 100 Mg Cap, 1 CAP PO BID, #60 CAP 2 Refills 07/11/24 Baclofen (Baclofen) 10 Mg Tab, 20 MG PO Q8HP PRN for PAIN SCALE 1 THRU 6 for 30 Days, MG 07/11/24 Losartan Potassium (Losartan Potassium) 100 Mg Tab, 1 TAB PO DAILY, #30 TAB 5 Refills 07/11/24 Baclofen (Baclofen) 20 Mg Tab, 1 TAB PO TID 07/11/24 Apixaban Base (ELIQUIS) 5 Mg Tab, 1 TAB PO BID 07/11/24 Information Source: Patient, Emergency Med Personnel Mode of Arrival: EMS Past Medical History PAST MEDICAL HISTORY: AFIB, HTN Surgical History: Cholecystectomy, Tonsillectomy CRISIS INTERVENTION SPECIALIST History: No Pertinent CRISIS INTERVENTION SPECIALIST History Family History Family History: Reviewed,noncontributory to illness Social History Smoker: Non-Smoker Alcohol: Denies ETOH Use Drugs: Denies Drug Use Lives In: Home Constitutional: denies: chills, diaphoresis, fatigue, fever, malaise, sweats, weakness, others EENTM: denies: blurred vision, double vision, ear bleeding, ear discharge, ear drainage, ear pain, ear ringing, eye pain, eye redness, hearing loss, mouth pain, mouth swelling, nasal discharge, nose bleeding, nose congestion, nose pain, photophobia, tearing, throat pain, throat swelling, voice changes, others Respiratory: denies: cough, hemoptysis, orthopnea, SOB at rest, shortness of breath, SOB with excertion, stridor, wheezing, others Cardiovascular: denies: chest pain, dizzy spells, diaphoresis, Dyspnea on exertion, edema, irregular heart beat, left arm pain, lightheadedness, palpitations, PND, syncope, others Gastrointestinal: denies: abdomen distended, abdominal pain, blood streaked bowels, constipated, diarrhea, dysphagia, difficulty swallowing, hematemesis, melena, nausea, poor appetite, poor fluid intake, rectal bleeding, rectal pain, vomiting, others Genitourinary: denies: abnormal vagina bleeding, burning, dyspareunia, dysuria, flank pain, frequency, hematuria, incontinence, pain, , vagina discharge, urgency, others Neurological: denies: dizziness, fainting, headache, left sided numbness, left sided weakness, numbness, paresthesia, pre-existing deficit, right sided numbness, right sided weakness, seizure, speech problems, tingling, tremors, weakness, others Musculoskeletal: denies: back pain, gout, joint pain, joint swelling, muscle pain, muscle stiffness, neck pain, others Integumetry: reports: lesions (b/l buttock area); denies: bruises, change in color, change in hair/nails, dryness, laceration, lumps, rash, wounds, others Allergic/Immunocompromised: denies: Difficulty Healing, Frequent Infections, Hives, Itching, others Hematologic/Lymphatic: denies: anemia, blood clots, easy bleeding, easy bruising, swollen glands, others Endocrine: denies: excessive hunger, excessive sweating, excessive thirst, excessive urination, flushing, intolerance to cold, intolerance to heat, u nexplained weight gain, unexplained weight loss, others Psychiatric: denies: anxiety, bipolar disorder, depression, hopeless, panic disorder, schizophrenia, sleepless, suicidal, others All Other Systems: Reviewed and Negative Physical Exam General Appearance: No Apparent Distress, Normal HEENT: Normal ENT Inspection, Pharynx Normal, TMs Normal Neck: Full Range of Motion, Non-Tender, Normal, Normal Inspection Respiratory: Chest Non-Tender, Lungs Clear, No Accessory Muscle Use, No Respiratory Distress, Normal Breath Sounds Cardiovascular: No Edema, No JVD, No Murmur, No Gallop, Normal Peripheral P ulses, Regular Rate/Rhythm Breast Exam: Deferred Gastrointestinal: No Organomegaly, Non Tender, No Pulsatile Mass, Normal Bowel Sounds, Soft Genitalia: Deferred Pelvic: Deferred Rectal: Deferred Extremities: No calf tenderness, Normal capillary refill, Normal inspection, Normal range of motion, Non-tender, No pedal edema Musculoskeletal : Apperance: Normal Neurologic: Alert, swing ride operator II-XII nml as Tested, No Motor Deficits, Normal Affect, Normal Mood, No Sensory Deficits Cerebellar Function: Normal Reflexes: Normal Skin: Wounds (L buttock stage 1 decubitus ulcer, R buttock stage 2 decubitus ulcer, bilateral area with surrounding cellulitus) Lymphatic: No Adenopathy Was a procedure done? Was a procedure done?: No Differential Diagnosis (INTG) Differential Diagnosis: Other (decubitus ulcers) Abscess: Abscess, Bacteremia, Cellulitis X-Ray, Labs, Meds, VS Vital Signs Date Time Temp Pulse Resp B/P (MAP) Pulse Ox O2 Delivery O2 Flow Rate FiO2 08/11/24 16:58 98.6 62 16 107/60 (76) 94 98.6 Lab Test 08/11/24 17:46 Range/Units White Blood Count 11.7 H 4.4-10.8 10^3/uL Red Blood Count 4.21 4.0-5.20 10^6/uL Hemoglobin 12.3 12.2-16.2 g/dL Hematocrit 38.0 36.0-46.0 % Mean Corpuscular Volume 90.3 80.0-100.0 fL Mean Corpuscular Hemoglobin 29.3 28.0-32.0 pg Mean Corpuscular Hemoglobin Concent 32.5 32.0-36.0 g/dL Red Cell Distribution Width 14.3 11.8-14.3 % Platelet Count 480 H 140-450 10^3/uL Mean Platelet Volume 7.7 6.9-10.8 fL Neutrophils (%) (Auto) 74.5 37.0-80.0 % Lymphocytes (%) (Auto) 13.8 10.0-50.0 % Monocytes (%) (Auto) 8.0 0.0-12.0 % Eosinophils (%) (Auto) 2.1 0.0-7.0 % Basophils (%) (Auto) 1.6 0.0-2.0 % Neutrophils # (Auto) 8.7 H 1.6-8.6 10 ^3/uL Lymphocytes # (Auto) 1.6 0.4-5.4 10 ^3/uL Monocytes # (Auto) 0.9 0-1.3 10 ^3/uL Eosinophils # (Auto) 0.2 0-0.8 10 ^3/uL Basophils # (Auto) 0.2 0-0.2 10 ^3/uL Nucleated Red Blood Cells 0.1 % Sodium Level 140 136-145 mmol/L Potassium Level 4.4 3.5-5.1 mmol/L Chloride Level 106 98-107 mmol/L Carbon Dioxide Level 27 20-31 mmol/L Anion Gap 7 5-15 Blood Urea Nitrogen 18 9-23 mg/dL Creatinine 1.02 0.550-1.02 mg/dL Glomerular Filtration Rate Calc 55 >90 mL/min BUN/Creatinine Ratio 17.6 10.0-20.0 Serum Glucose 79 74-106 mg/dL Calcium Level 8.8 8.7-10.4 mg/dL Current Medications Medications (Trade) Dose Ordered Sig/Vinny Route Start Time Stop Time Status Last Admin Acetaminophen (Ofirmev) 1,000 mg ONCE ONCE IV 08/11/24 17:45 08/11/24 17:46 DC 08/11/24 17:57 Time of 1ST Reevaluation: 18:40 Reevaluation 1ST: Unchanged Patient Education/Counseling: Diagnosis, Treatment, Prognosis, Need For Follow Up Family Education/Counseling: No Family Present Additional Information Previous visits reviewed: The following tests were ordered, and results were reviewed by me: cbc, bmp Additional Information was gathered from interviewing the following independent historians: none I reviewed and agreed with the following test results read by other providers: radiologist I discussed treatment and results with medical personnel and: patient Comprehensive systems review obtained and negative except for what is stated in the HPI. pt has cellulitis around the mild decubitus ulcers. she is not actively bleeding but she is on eliquis and did bleed at home. pt will be admitted for wound care and treatment of the infected decubitus ulcers Departure 1 Departure Time of Disposition: 18:28 Impression: Primary Impression: Cellulitis Additional Impression: Infected decubitus ulcer Disposition: ADMITTED INPATIENT Admit to: Med Surg Condition: Serious Discharged With: Self Critical Care Note Critical Care Time?: No Stability Stability form required: No Heart Score Heart Score: Heart Score Response (Comments) Value History N/A 0 EKG N/A 0 Age N/A 0 Risk Factors N/A 0 Troponin N/A 0 Total 0 I personally scribed for BHUPINDER MEYER MD ([email or web address]) on 08/11/24 at 18:11. Electronically submitted by Cecelia Fletcher ([email or web address]). I personally scribed for BHUPINDER MEYER MD ([email or web address]) on 08/11/24 at 18:17. Electronically submitted by Cecelia Fletcher ([email or web address]). BHUPINDER MEYER MD August 11, 2024 18:11
[2024-08-11 18:17] LABS: Chloride 106 mmol/L (98-107); Potassium 4.4 mmol/L (3.5-5.1); Sodium 140 mmol/L (136-145)
[2024-08-11 18:18] LABS: Anion Gap 7 (5-15); Calcium 8.8 mg/dL (8.7-10.4); Carbon Dioxide 27 mmol/L (20-31)
[2024-08-11 18:23] LABS: BUN/Creatinine Ratio 17.6 (10.0-20.0); Blood Urea Nitrogen 18 mg/dL (9-23); Glucose 79 mg/dL (74-106)
[2024-08-11] MEDS: cefTRIAXone 1GM/50ML D5W 50 ML IV ONE (19:06)
[2024-08-11 19:30] VITALS: PULSE 93; RESP 16; O2SAT 96
[2024-08-11] MEDS ORDERED: DOCUSATE SOD 100 MG CAP PO PRN (20:15)
[2024-08-11] MEDS ORDERED: ONDANSETRON HCL 4 MG/2 ML VIAL IV PRN (20:15)
[2024-08-11] MEDS ORDERED: HYDROcodone-ACET 5/325MG TAB PO PRN (20:15)
[2024-08-11] MEDS ORDERED: VANCOMYCIN PER PHARMACY 0 MG IV SCH (20:15)
[2024-08-11] MEDS: VANCOMYCIN 1GM/200ML PM 200 ML IV ONE ×2 (21:54→22:04)
[2024-08-11] MEDS: SODIUM CHLOR 0.9% PF (SALINE LOCK) 10ML VIAL/SYR IV SCH (22:04)
[2024-08-11] MEDS: APIXABAN 5 MG TAB PO SCH (22:21)
[2024-08-11] MEDS: DULoxetine HCL 30 MG CAP PO SCH (22:21)
[2024-08-11] MEDS: CARVEDILOL 3.125 MG TAB PO SCH (22:22)
[2024-08-11] MEDS ORDERED: MORPHINE SULFATE INJ 2 MG/ml SYRG IV PRN (22:45)
[2024-08-11] MEDS ORDERED: NITROGLYCERIN 0.4 MG SL TAB SL PRN (22:45)
--- NOTE | 2024-08-11 22:47 | DVHHP2 ---
History of Present Illness Reason for Visit: Cellulitis History of Present Illness The patient is a 84-year-old female wheelchair-bound with past medical history of neuropathy, decubitus ulcer, AFib, hypertension, and depression who presented to [facility] ED for evaluation of bilateral lower extremity decubitus ulcer. Patient has wounds to the bilateral buttock area for the past 2-3 weeks, noticed increased bleeding and pain, getting worse that prompted this visit..Patient was seen and evaluated in the ED, laboratory data shows WBC 11.7, platelets 480, sodium 140, potassium 4.4, BUN 18, creatinine 1.02, glucose 79, blood pressure 109/36, heart rate 93, temperature 98.3 F, O2 saturation 94% on oxygen. Patient was started on IV antibiotic regimen vancomycin, please see medication orders section in the computer. On my assessment, denied chest pain, no headache, no dizziness, no shortness of breaths, no diarrhea, no nausea, no vomiting, no fever, no chills. Patient was admitted for further evaluation and medical management. Past Medical History AFIB, HTN, Depression, decubitus ulcer, neuropathy Past Surgical History Cholecystectomy, Tonsillectomy Family History Reviewed, noncontributory to the management of this case. Past Social History The patient lives at home, denies smoking, alcohol or illicit drugs abuse. Review of Systems Constitutional: Yes: Weakness; No: Fever, Chills, Sweats, Malaise, Other Eyes: No: Pain, Vision change, Conjunctivae inflammation, Eyelid inflammation, Other, Redness ENT: No: Ear pain, Ear discharge, Nose pain, Nose discharge, Nose congestion, Mouth pain, Mouth swelling, Throat pain, Throat swelling, Other Respiratory: No: Cough, Dry, Shortness of breath, SOB with excertion, Wheezing, Hemoptysis, Pleuritic Pain, Sputum, Wheezing, Other Cardiovascular: No: Chest Pain, Palpitations, Orthopnea, Paroxysmal Noc. Dyspnea, Edema, Lt Headedness, Other Gastrointestinal: No: Nausea, Vomiting, Abdominal Pain, Diarrhea, Constipation, Melena, Hematochezia, Other Genitourinary: No Dysuria, No Frequency, No Incontinence, No Hematuria, No Retention, No Other Musculoskeletal: other (Bilateral lower extremity pain); No: neck pain, shoulder pain, arm pain, back pain, hand pain, leg pain, foot pain Skin: Lesions (In buttocks), Other (Cellulitis of bilateral lower extremity); No: Rash, Jaundice, Bruising Neurological: No: Weakness, Numbness, Incoordination, Change in speech, Confusion, Seizures, Other Allergies: Coded Allergies: Cephalexin (Verified Allergy, Unknown, 07/10/24) Penicillins (Verified Allergy, Unknown, 07/10/24) Medications Current Medications Medications Dose Ordered Sig/Vinny Route Start Time Stop Time Status Last Admin Dose Admin Vancomycin HCl 0 ml @ 0 mls/hr UD IV 08/11/24 20:15 UNV Duloxetine HCl 60 mg BID PO 08/11/24 22:00 08/11/24 22:21 60 MG Baclofen 10 mg Q8HP PRN PO 08/11/24 20:15 Carvedilol 3.125 mg Q12HR PO 08/11/24 22:00 08/11/24 22:22 3.125 MG Apixaban 5 mg BID PO 08/11/24 22:00 08/11/24 22:21 5 MG Sodium Chloride 10 ml Q8HR IV 08/11/24 22:00 08/11/24 22:04 10 ML Acetaminophen/ Hydrocodone Bitart 1 tab Q4HP PRN PO 08/11/24 20:15 Ondansetron HCl 4 mg Q4HP PRN IV 08/11/24 20:15 Docusate Sodium 100 mg BIDPRN PRN PO 08/11/24 20:15 Acetaminophen 800 mg Q6HP PRN PO 08/11/24 20:15 Exam Vital Signs Vital Signs Date Time Temp Pulse Resp B/P (MAP) Pulse Ox O2 Delivery O2 Flow Rate FiO2 08/11/24 22:22 81 113/68 08/11/24 19:30 97.5 16 98 97.5 08/11/24 17:29 Room Air* 0 21 General Appearance: Alert, Oriented X3, Cooperative, No acute distress HEENT: Atraumatic, PERRLA, EOMI, Mucous membr. moist/pink Respiratory: Normal air movement Cardiovascular: Regular rate, Normal S1, Normal S2, No murmurs Abdominal: Normal bowel sounds, Soft, No tenderness, No hepatospenomegaly, No masses Extremities: No clubbing, No cyanosis, Other (Lower extremity redness/swelling) Skin: No rashes Neuro: Normal speech, Normal tone, Sensation intact, Cranial nerves 3-12 NL, Reflexes 2+, Other (Generalized weakness) Psych/Mental Status: Mental status NL, Mood NL Labs/Xrays Labs Test 08/11/24 17:46 Range/Units White Blood Count 11.7 H 4.4-10.8 10^3/uL Red Blood Count 4.21 4.0-5.20 10^6/uL Hemoglobin 12.3 12.2-16.2 g/dL Hematocrit 38.0 36.0-46.0 % Mean Corpuscular Volume 90.3 80.0-100.0 fL Mean Corpuscular Hemoglobin 29.3 28.0-32.0 pg Mean Corpuscular Hemoglobin Concent 32.5 32.0-36.0 g/dL Red Cell Distribution Width 14.3 11.8-14.3 % Platelet Count 480 H 140-450 10^3/uL Mean Platelet Volume 7.7 6.9-10.8 fL Neutrophils (%) (Auto) 74.5 37.0-80.0 % Lymphocytes (%) (Auto) 13.8 10.0-50.0 % Monocytes (%) (Auto) 8.0 0.0-12.0 % Eosinophils (%) (Auto) 2.1 0.0-7.0 % Basophils (%) (Auto) 1.6 0.0-2.0 % Neutrophils # (Auto) 8.7 H 1.6-8.6 10 ^3/uL Lymphocytes # (Auto) 1.6 0.4-5.4 10 ^3/uL Monocytes # (Auto) 0.9 0-1.3 10 ^3/uL Eosinophils # (Auto) 0.2 0-0.8 10 ^3/uL Basophils # (Auto) 0.2 0-0.2 10 ^3/uL Nucleated Red Blood Cells 0.1 % Sodium Level 140 136-145 mmol/L Potassium Level 4.4 3.5-5.1 mmol/L Chloride Level 106 98-107 mmol/L Carbon Dioxide Level 27 20-31 mmol/L Anion Gap 7 5-15 Blood Urea Nitrogen 18 9-23 mg/dL Creatinine 1.02 0.550-1.02 mg/dL Glomerular Filtration Rate Calc 55 >90 mL/min BUN/Creatinine Ratio 17.6 10.0-20.0 Serum Glucose 79 74-106 mg/dL Calcium Level 8.8 8.7-10.4 mg/dL Assessment/Plan Assessment/Plan Bilateral lower leg cellulitis Infected decubitus ulcer Generalized weakness Leukocytosis, unspecified Plan 1. Admit to med surge unit 2. Breathing treatment 3. Pain control management 4. IV antibiotic management 5. Management of fluids and electrolytes 6. Consultation for hospitalist/wound care 7. Diagnostic test chest x-ray 8. DVT prophylaxis-on Eliquis 9. Repeat labs CBC, CMP in a.m. 10. Home medication reviewed and reconciled 11. Continue with current medical management 12. Treatment plan discussed with patient and RN. Patient verbalized understanding. Plan discussed with: Patient, Other (RN) My Orders Orders - MONIKA CRUZ DNP Procedure Category Date Status Time Vancomycin Per PHA 08/11/24 Pending Pharmacy 20:15 Duloxetine Hcl PHA 08/11/24 In Process Capsule (Cymbalta 22:00 Baclofen Tablet PHA 08/11/24 In Process (Liorisal Tablet) 20:15 Carvedilol Tablet PHA 08/11/24 In Process (Coreg Tablet) 22:00 Apixaban (Eliquis) PHA 08/11/24 In Process 22:00 Allergies MARY 08/11/24 In Process 20:10 Code Status CODE 08/11/24 Transmitted 20:10 Sodium Chloride Lock PHA 08/11/24 In Process (Saline Lock Ns) 22:00 Oxygen Per Hour RT 08/11/24 Transmitted 20:10 Hydrocodone-Acet PHA 08/11/24 In Process 5/325mg Tab ([place] 20:15 Ondansetron Hcl PHA 08/11/24 In Process (Zofran) 20:15 Docusate Sodium PHA 08/11/24 In Process Capsule (Colace 20:15 Fall Risk Precautions MARY 08/11/[address] 20:10 Complete Blood Count LAB 08/12/24 Verified 04:00 Comprehensive LAB 08/12/24 Verified Metabolic Panel 04:00 Cardiac DIET 08/12/24 Transmitted Diet-2gna,Lofat,Lochol Breakfast Condition: Serious MARY 08/11/24 In Process 20:10 Acetaminophen Tablet PHA 08/11/24 In Process (Tylenol Tablet) 20:15 Bedrest With Bathroom MARY 08/11/24 In Process Privileg 20:10 Maintain Bed Rest MARY 08/11/24 In Process 20:10 Sequential MARY 08/11/24 In Process Compression Device Vancomycin 1gm/200ml PHA 08/11/24 In Process Pm 22:00 Admit ADMIT 08/11/24 Verified 22:45 Nitroglycerin PHA 08/11/24 Verified Sublingual (Ntrostat 22:45 Problem List: (1) Bilateral lower leg cellulitis (2) Infected decubitus ulcer (3) Generalized weakness (4) Leukocytosis, unspecified Date of Service: August 11, 2024 Billing Provider: MONIKA CRUZ DNP Common Visit Codes: [id number] INP/OBS CARE (HIGH) MONIKA CRUZ DNP August 11, 2024 22:47
[2024-08-12] VITALS (8 sets, daily range): BP systolic 114–138; BP diastolic 47–57; PULSE 65–76; RESP 12–20; TEMP 97.6–98.4; O2SAT 95–99
[2024-08-12] MEDS: ACETAMINOPHEN 325 MG TAB PO PRN (00:29)
[2024-08-12 09:05] LABS: Basophils # (auto) 0.1 10 ^3/uL (0-0.2); Eosinophils # (auto) 0.4 10 ^3/uL (0-0.8); Hemoglobin 11.7 g/dL (12.2-16.2)
[2024-08-12 09:09] LABS: Basophils % (auto) 0.9 % (0.0-2.0); Eosinophils % (auto) 4.2 % (0.0-7.0); Hematocrit 35.1 % (36.0-46.0); Lymphocytes # (auto) 1.7 10 ^3/uL (0.4-5.4); Lymphocytes % (auto) 18.3 % (10.0-50.0); Mean Corpuscular Hemoglobin 30.2 pg (28.0-32.0); Mean Corpuscular Hgb Conc. 33.5 g/dL (32.0-36.0); Mean Corpuscular Volume 90.1 fL (80.0-100.0); Monocytes % (auto) 10.1 % (0.0-12.0); Neutrophils # (auto) 6.3 10 ^3/uL (1.6-8.6); Neutrophils % (auto) 66.5 % (37.0-80.0); Platelet Count (auto) 440 10^3/uL (140-450); Red Blood Cells 3.89 10^6/uL (4.0-5.20); Red Cell Distribution Width 14.1 % (11.8-14.3); White Blood Cell 9.5 10^3/uL (4.4-10.8)
[2024-08-12 09:25] LABS: Alanine Aminotransferase 10 U/L (7-40); Alkaline Phosphatase 81 U/L (46-116); Anion Gap 4 (5-15); Aspartate Aminotransferase 14 U/L (13-40); BUN/Creatinine Ratio 17.4 (10.0-20.0); Blood Urea Nitrogen 16 mg/dL (9-23); Calcium 9.2 mg/dL (8.7-10.4); Carbon Dioxide 28 mmol/L (20-31); Glucose 90 mg/dL (74-106); Potassium 4.2 mmol/L (3.5-5.1); Sodium 143 mmol/L (136-145)
[2024-08-12 09:28] LABS: Albumin 2.7 g/dL (3.2-4.8); Bilirubin, Total 0.3 mg/dL (0.2-1.0); Chloride 111 mmol/L (98-107); Total Protein 4.9 g/dL (5.7-8.2)
[2024-08-12] MEDS ORDERED: MORPHINE SULFATE 4 MG/ML SYR/VIAL IV PRN (10:30)
--- NOTE | 2024-08-12 13:07 | DVHPN2 ---
Reviewed: Care Plan, H&P, Labs, Medications, Previous Orders, Radiology Changes from previous H/P or p: No Changes Eyes: No Pain, No Vision change, No Conjunctivae inflammation, No Eyelid inflammation, No Other, No Redness ENT: No Ear pain, No Ear discharge, No Nose pain, No Nose discharge, No Nose congestion, No Mouth pain, No Mouth swelling, No Throat pain, No Throat swelling, No Other Cardiovascular: No Chest Pain, No Palpitations, No Orthopnea, No Paroxysmal Noc. Dyspnea, No Edema, No Lt Headedness, No Other Respiratory: No Cough, No Dry, No Shortness of breath, No SOB with excertion, No Wheezing, No Hemoptysis, No Pleuritic Pain, No Sputum, No Other Gastrointestinal: No Nausea, No Vomiting, No Abdominal Pain, No Diarrhea, No Constipation, No Melena, No Hematochezia, No Other Genitourinary: No Dysuria, No Frequency, No Incontinence, No Hematuria, No Retention, No Other Musculoskeletal: other (Bilateral lower extremity pain); No neck pain, No shoulder pain, No arm pain, No back pain, No hand pain, No leg pain, No foot pain Skin: No Rash; Lesions (In buttocks); No Jaundice, No Bruising; Other (Cellulitis of bilateral lower extremity) Objective Vitals Vital Signs Date Time Temp Pulse Resp B/P (MAP) Pulse Ox O2 Delivery O2 Flow Rate FiO2 08/12/24 12:41 98.0 71 20 130/53 (78) 97 98.0 08/12/24 12:41 Room Air* 0 21 Intake/Output Intake and Output 08/12/24 07:00 Intake Total 300 ml Output Total 0 ml Balance 300 ml IV Total 300 ml Output Urine Total 0 ml Medications Current Medications Medications Dose Ordered Sig/Vinny Route Start Time Stop Time Status Last Admin Dose Admin Vancomycin HCl 0 ml @ 0 mls/hr UD IV 08/11/24 20:15 Duloxetine HCl 60 mg BID PO 08/11/24 22:00 08/11/24 22:21 60 MG Baclofen 10 mg Q8HP PRN PO 08/11/24 20:15 Carvedilol 3.125 mg Q12HR PO 08/11/24 22:00 08/11/24 22:22 3.125 MG Apixaban 5 mg BID PO 08/11/24 22:00 08/12/24 10:10 5 MG Sodium Chloride 10 ml Q8HR IV 08/11/24 22:00 08/12/24 05:32 10 ML Acetaminophen/ Hydrocodone Bitart 1 tab Q4HP PRN PO 08/11/24 20:15 Ondansetron HCl 4 mg Q4HP PRN IV 08/11/24 20:15 Docusate Sodium 100 mg BIDPRN PRN PO 08/11/24 20:15 Acetaminophen 800 mg Q6HP PRN PO 08/11/24 20:15 08/12/24 00:29 800 MG Nitroglycerin 0.4 mg Q5MINP PRN SL 08/11/24 22:45 Morphine Sulfate 2 mg Q30M PRN IV 08/11/24 22:45 Cancel Vancomycin HCl 200 ml @ 160 mls/hr Q24H IV 08/12/24 22:00 Amino Acid Protein 30 ml DAILY PO 08/13/24 10:00 Ascorbic Acid 500 mg BID PO 08/12/24 22:00 Multivitamins/ Minerals 1 tab DAILY PO 08/13/24 10:00 Morphine Sulfate 2 mg Q30M PRN IV 08/12/24 10:30 Laboratory Results Laboratory Tests 08/12/24 08:35 Chemistry Test 08/11/24 17:46 08/12/24 08:35 Calcium Level 8.8 mg/dL (8.7-10.4) 9.2 mg/dL (8.7-10.4) Albumin 2.7 g/dL (3.2-4.8) L Total Protein 4.9 g/dL (5.7-8.2) L LFT Test 08/12/24 08:35 Alanine Aminotransferase (ALT) 10 U/L (7-40) Alkaline Phosphatase 81 U/L (46-116) Aspartate Amino Transferase (AST) 14 U/L (13-40) Total Bilirubin 0.3 mg/dL (0.2-1.0) Labs and/or images reviewed: Labs reviewed by me, Image(s) reviewed by me Assessment/Plan Assessment/Plan Sepsis secondary to infected decubitus ulcers Bilateral leg ulcers: 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 Sanders Stasis dermatitis bilateral Infected decubitus ulcers back Multiple sacral wounds, POA History of atrial fibrillation Hypercoagulable state secondary to above Probable YOSELYN, hemodynamically mediated/VMN on CKD II? Severe peripheral neuropathy Hypertension Hypertensive heart disease UTI Obesity grade 1,BMI: 30.5 History of Rheumatic fever Poor care at home, patient has 2 in-home support personnel, but they all gone for a wedding in [place] Severe malnutrition Spent 70 minutes Patient is full code Advanced care planning time 20 mts Plan discussed with: Patient Date of Service: Aug 12, 2024 Billing Provider: PATRIA DENISE MD Common Visit Codes: [id number]-[id number] CARE 30-74 MIN PATRIA DENISE MD Aug 12, 2024 13:07
[2024-08-12] MEDS: LINEZOLID 600MG/300ML 300 ML IV SCH (18:30)
[2024-08-12] MEDS: traMADol HCL 50 MG TAB PO PRN (18:43)
[2024-08-12] MEDS: VANCOMYCIN 1GM/200ML PM 200 ML IV SCH (22:38)
[2024-08-12] MEDS: ASCORBIC ACID 500 MG TAB PO SCH (22:41)
[2024-08-13] VITALS (8 sets, daily range): BP systolic 117–145; BP diastolic 43–63; PULSE 67–77; RESP 12–18; TEMP 97.8–98.5; O2SAT 96–98
[2024-08-13] MEDS: ACETAMINOPHEN 325 MG TAB PO PRN (01:35)
[2024-08-13 06:47] LABS: Basophils # (auto) 0.1 10 ^3/uL (0-0.2); Basophils % (auto) 0.8 % (0.0-2.0); Eosinophils # (auto) 0.5 10 ^3/uL (0-0.8); Eosinophils % (auto) 5.1 % (0.0-7.0); Hematocrit 39.2 % (36.0-46.0); Hemoglobin 12.8 g/dL (12.2-16.2); Lymphocytes # (auto) 2.3 10 ^3/uL (0.4-5.4); Lymphocytes % (auto) 22.9 % (10.0-50.0); Mean Corpuscular Hemoglobin 29.4 pg (28.0-32.0); Mean Corpuscular Hgb Conc. 32.5 g/dL (32.0-36.0); Mean Corpuscular Volume 90.3 fL (80.0-100.0); Monocytes # (auto) 0.7 10 ^3/uL (0-1.3); Monocytes % (auto) 6.9 % (0.0-12.0); Neutrophils # (auto) 6.5 10 ^3/uL (1.6-8.6); Neutrophils % (auto) 64.3 % (37.0-80.0); Nucleated Red Blood Cells % 0.2 %; Platelet Count (auto) 478 10^3/uL (140-450); Red Blood Cells 4.34 10^6/uL (4.0-5.20); Red Cell Distribution Width 14.3 % (11.8-14.3); White Blood Cell 10.2 10^3/uL (4.4-10.8)
[2024-08-13] MEDS: Pro-Stat SF 30ml Vanilla PO SCH (10:00)
[2024-08-13] MEDS: MULTIPLE VITAMINS W/ MINERALS TAB PO SCH (10:00)
--- NOTE | 2024-08-13 12:10 | DVHPN2 ---
Progress Note Date Seen: Aug 13, 2024 Medical Necessity Reason Pt with a Central, PICC or Fol: No Subjective Patient reports: No new complaints Review of Systems: HEENT:Normal, CVS:Normal, RESPIRATORY:Normal, GI:Normal, :Normal, MSK:Normal, NEURO:Normal Objective vital signs Vital Sign Date Time Temp Pulse Resp B/P (MAP) Pulse Ox O2 Delivery O2 Flow Rate FiO2 08/13/24 09:00 97.9 67 12 145/62 (89) 97 97.9 08/12/24 20:00 Room Air* 0 21 Total Intake and Output 08/12/24 08/12/24 08/13/24 15:00 23:00 07:00 Intake Total 510 ml 275 ml Balance 510 ml 275 ml medications Current Medications Medications Dose Ordered Sig/Vinny Route Start Time Stop Time Status Last Admin Dose Admin Vancomycin HCl 0 ml @ 0 mls/hr UD IV 08/11/24 20:15 Duloxetine HCl 60 mg BID PO 08/11/24 22:00 08/11/24 22:21 60 MG Baclofen 10 mg Q8HP PRN PO 08/11/24 20:15 Carvedilol 3.125 mg Q12HR PO 08/11/24 22:00 08/11/24 22:22 3.125 MG Apixaban 5 mg BID PO 08/11/24 22:00 08/12/24 22:41 5 MG Sodium Chloride 10 ml Q8HR IV 08/11/24 22:00 08/13/24 06:09 10 ML Ondansetron HCl 4 mg Q4HP PRN IV 08/11/24 20:15 Docusate Sodium 100 mg BIDPRN PRN PO 08/11/24 20:15 Nitroglycerin 0.4 mg Q5MINP PRN SL 08/11/24 22:45 Morphine Sulfate 2 mg Q30M PRN IV 08/11/24 22:45 Cancel Vancomycin HCl 200 ml @ 160 mls/hr Q24H IV 08/12/24 22:00 08/12/24 22:38 160 MLS/HR Amino Acid Protein 30 ml DAILY PO 08/13/24 10:00 Ascorbic Acid 500 mg BID PO 08/12/24 22:00 08/12/24 22:41 500 MG Multivitamins/ Minerals 1 tab DAILY PO 08/13/24 10:00 Morphine Sulfate 2 mg Q30M PRN IV 08/12/24 10:30 Linezolid 300 ml @ 150 mls/hr Q12H IV 08/12/24 18:30 08/13/24 06:09 150 MLS/HR Tramadol HCl 50 mg Q6HP PRN PO 08/12/24 18:30 08/13/24 03:01 50 MG Acetaminophen 650 mg Q6HP PRN PO 08/12/24 21:30 08/13/24 01:35 650 MG Examination: GENERAL:Normal, HEENT:Normal, NECK:Normal, LUNGS:Normal, CVS:Normal, ABDOMEN:Normal, MSK:Normal, MSK:Abnormal (LEFT FOOT ULCERS, CELLULITIS RIGHT LEG, BUTTOCK REDNESS), SKIN:Normal, NEURO:Normal, :Normal laboratory and microbiology Laboratory Tests 08/13/24 05:44 08/12/24 08:35 Test 08/12/24 08:35 Range/Units Serum Glucose 90 74-106 mg/dL Problem List/Assessment/Plan Problem List/Assessment/Plan #1 ?sepsis with ulcer left foot, cellulitis right leg: iv antibiotics #2 a fib with secondary hypercoagulable state: cont meds #3 htn #4 bed bound status/functional quadriplegia #5 peripheral neuropathy #6 mod protein malnutrition advance care planning- full code- time spent 19 mins Plan discussed with: Patient My Orders My Orders Orders - CAPRI OSEI MD Procedure Category Date Status Time Apixaban (Eliquis) PHA 08/13/24 Verified 22:00 Amiodarone Tablet PHA 08/13/24 Verified (Cordarone Tablet) 12:15 Amiodarone Tablet PHA 08/14/24 Verified (Cordarone Tablet) 10:00 Losartan Tablet PHA 08/13/24 Verified (Cozaar Tablet) 12:15 Losartan Tablet PHA 08/14/24 Verified (Cozaar Tablet) 10:00 Meropenem 1gm Ivpb X PHA 08/13/24 Verified ONE 12:15 Meropenem 1gm PHA 08/13/24 Verified Q8h(Gfr>50) 14:00 *Podiatry Consult CONS 08/13/24 Verified Musson(Dvmg) 12:01 Ct L Foot Wo Contrast CT 08/13/24 Verified 12:01 Urinalysis LAB 08/13/24 Uncollected 12:01 Dietary Evaluation Review Recommendations by RD: Protein Supplementation Comments: 1) Initiate Pro-Stat @ 30 mL qd 2) Initiate MVI @ 1 tb qd 3) Consider vitamin C @ 500 mg bid and zinc sulfate @ 220 mg qd for 7-10 days 4) Encourage optimal PO intake. If < 50%, initiate Ensure Enlive qd 5) Continue to monitor I&O, labs, and skin integrity Expected Outcomes/Goals: 1) appetite and labs to improve 2) wound to improve 3) f/u in 3-5 days Date of Service: Aug 13, 2024 Billing Provider: CAPRI OSEI MD Common Visit Codes: [id number] INP/OBS CARE(HIGH) Secondary Visit Codes: [id number] CARE PLAN 30 MINUTES CAPRI OSEI MD Aug 13, 2024 12:10
[2024-08-13] MEDS: AMIODARONE HCL 200 MG TAB PO ONE (12:15)
[2024-08-13] MEDS: LOSARTAN POTASSIUM 25 MG TAB PO ONE (12:15)
[2024-08-13] MEDS: MEROPENEM 1GM IVPB 50 ML IV ONE (12:15)
--- NOTE | 2024-08-13 15:10 | DVHINCON2 ---
Date Seen: Aug 13, 2024 Reason for Consultation bilateral foot wounds and cellulitis History of Present Illness The patient is a 84-year-old female wheelchair-bound with past medical history of neuropathy, decubitus ulcer, AFib, hypertension, and depression who presented to [facility] ED for evaluation of bilateral lower extremity decubitus ulcer. Patient has wounds to the bilateral buttock area for the past 2-3 weeks, noticed increased bleeding and pain, getting worse that prompted this visit..Patient was seen and evaluated in the ED, laboratory data shows WBC 11.7, platelets 480, sodium 140, potassium 4.4, BUN 18, creatinine 1.02, glucose 79, blood pressure 109/36, heart rate 93, temperature 98.3 F, O2 saturation 94% on oxygen. Patient was started on IV antibiotic regimen vancomycin, please see medication orders section in the computer. On my assessment, denied chest pain, no headache, no dizziness, no shortness of breaths, no diarrhea, no nausea, no vomiting, no fever, no chills. Patient was admitted for further evaluation and medical management. Past Medical History See H&P Past Surgical History See H&P Family History: Diabetes mellitus G8 MOTHER FH: brain tumor G8 FATHER FH: neuropathy G8 MOTHER Allergies: Coded Allergies: Cephalexin (Verified Allergy, Unknown, 07/10/24) Penicillins (Verified Allergy, Unknown, 07/10/24) Home Meds Active Scripts Clindamycin Hcl (CLEOCIN) 150 Mg Cap, 1 CAP PO TID, #30 CAP Prov:KAY VALLECILLO MD 07/14/24 Acetaminophen (Acetaminophen) 325 Mg Tab, 325 MG PO Q4HP PRN for 14 Days, #70 TAB Prov:DAVIS NEWMAN 07/13/24 Reported Medications Duloxetine Hcl (Cymbalta) 60 Mg Cap, 1 CAP PO TID, #90 CAP 3 Refills 07/11/24 Gabapentin (Gabapentin) 300 Mg Cap, 300 MG PO TID for 30 Days, MG 07/11/24 Pregabalin (Lyrica) 100 Mg Cap, 1 CAP PO BID, #60 CAP 2 Refills 07/11/24 Baclofen (Baclofen) 10 Mg Tab, 20 MG PO Q8HP PRN for PAIN SCALE 1 THRU 6 for 30 Days, MG 07/11/24 Losartan Potassium (Losartan Potassium) 100 Mg Tab, 1 TAB PO DAILY, #30 TAB 5 Refills 07/11/24 Baclofen (Baclofen) 20 Mg Tab, 1 TAB PO TID 07/11/24 Apixaban Base (ELIQUIS) 5 Mg Tab, 1 TAB PO BID 07/11/24 Current Medications Current Medications Medications (Trade) Dose Ordered Sig/Vinny Route PRN Reason Start Time Stop Time Status Last Admin Vancomycin HCl 200 ml @ 160 mls/hr Q24H IV 08/12/24 22:00 08/13/24 12:08 DC 08/12/24 22:38 Amino Acid Protein (Pro-Stat Sugar Free) 30 ml DAILY PO 08/13/24 10:00 08/13/24 10:00 Ascorbic Acid (Vitamin C Tablet) 500 mg BID PO 08/12/24 22:00 08/13/24 10:00 Multivitamins/ Minerals (Mvi W/ Minerals Tablet) 1 tab DAILY PO 08/13/24 10:00 08/13/24 10:00 Linezolid 300 ml @ 150 mls/hr Q12H IV 08/12/24 18:30 08/13/24 06:09 Tramadol HCl (Ultram) 50 mg Q6HP PRN PO MODERATE PAIN (4-6 PAIN SCALE) 08/12/24 18:30 08/13/24 03:01 Acetaminophen (Tylenol Tablet) 650 mg Q6HP PRN PO PAIN SCALE 1-3 OR TEMP>100.4 08/12/24 21:30 08/13/24 01:35 Apixaban (Eliquis) 2.5 mg BID PO 08/13/24 22:00 Amiodarone HCl (Cordarone Tablet) 200 mg DAILY PO 08/14/24 10:00 Losartan Potassium (Cozaar Tablet) 25 mg DAILY PO 08/14/24 10:00 Meropenem 50 ml @ 17 mls/hr Q12HR IV 08/13/24 22:00 Vital Signs Vital Signs Date Time Temp Pulse Resp B/P (MAP) Pulse Ox O2 Delivery O2 Flow Rate FiO2 08/13/24 13:00 98.1 75 15 130/58 (82) 97 98.1 08/12/24 20:00 Room Air* 0 21 Physical Exam Dermatological: Skin is dry with mild erythema and some maceration around the wound site No gross deformities noted Mild non-pitting edema present bilaterally Left medial wound with sutures intact and right leg cellulitis Vascular: Dorsalis pedis and posterior tibial pulses are 1+ bilaterally Capillary refill is under 2 seconds Skin temperature is warm bilaterally Neurologic: Protective sensation is absent on the plantar forefoot bilaterally Monofilament testing reveals decreased sensation in multiple plantar sites Musculoskeletal: Range of motion at the ankle and MTP joints is within normal limits. Strength is 5/5 in all tested muscle groups. Gait is antalgic due to offloading of the affected limb. Labs/Diagnostic Data Labs Test 08/13/24 05:44 08/12/24 08:35 Range/Units White Blood Count 10.2 4.4-10.8 10^3/uL Red Blood Count 4.34 4.0-5.20 10^6/uL Hemoglobin 12.8 12.2-16.2 g/dL Hematocrit 39.2 # 36.0-46.0 % Mean Corpuscular Volume 90.3 80.0-100.0 fL Mean Corpuscular Hemoglobin 29.4 28.0-32.0 pg Mean Corpuscular Hemoglobin Concent 32.5 32.0-36.0 g/dL Red Cell Distribution Width 14.3 11.8-14.3 % Platelet Count 478 H 140-450 10^3/uL Mean Platelet Volume 7.7 6.9-10.8 fL Neutrophils (%) (Auto) 64.3 37.0-80.0 % Lymphocytes (%) (Auto) 22.9 10.0-50.0 % Monocytes (%) (Auto) 6.9 0.0-12.0 % Eosinophils (%) (Auto) 5.1 0.0-7.0 % Basophils (%) (Auto) 0.8 0.0-2.0 % Neutrophils # (Auto) 6.5 1.6-8.6 10 ^3/uL Lymphocytes # (Auto) 2.3 0.4-5.4 10 ^3/uL Monocytes # (Auto) 0.7 0-1.3 10 ^3/uL Eosinophils # (Auto) 0.5 0-0.8 10 ^3/uL Basophils # (Auto) 0.1 0-0.2 10 ^3/uL Nucleated Red Blood Cells 0.2 % Creatinine 0.82 0.550-1.02 mg/dL Glomerular Filtration Rate Calc 71 >90 mL/min Sodium Level 143 136-145 mmol/L Potassium Level 4.2 3.5-5.1 mmol/L Chloride Level 111 H 98-107 mmol/L Carbon Dioxide Level 28 20-31 mmol/L Anion Gap 4 L 5-15 Blood Urea Nitrogen 16 9-23 mg/dL BUN/Creatinine Ratio 17.4 10.0-20.0 Serum Glucose 90 74-106 mg/dL Calcium Level 9.2 8.7-10.4 mg/dL Total Bilirubin 0.3 0.2-1.0 mg/dL Aspartate Amino Transferase (AST) 14 13-40 U/L Alanine Aminotransferase (ALT) 10 7-40 U/L Alkaline Phosphatase 81 46-116 U/L Total Protein 4.9 L 5.7-8.2 g/dL Albumin 2.7 L 3.2-4.8 g/dL Problems(with codes): (1) Cellulitis (2) Infected decubitus ulcer (3) Generalized weakness (4) Leukocytosis, unspecified (5) Bilateral lower leg cellulitis Plan/Recommendation ASSESSMENT: Patient is a 84 year old seen on the floor for a worsening ulcer PLAN: - The patients chart was reviewed, clinical findings were discussed with the patient, the etiologies of the conditions were discussed in detail, and a treatment plan was agreed to at this time, with both oral and written instructions provided. - reviewed advanced imaging - discussed that does the clinic localized cellulitis with no deeper infection - we will come remove the sutures tomorrow - continue antibiotics for the cellulitis - patient will continue with her wound care as an outpatient - no surgical recommendation at this point All questions were answered and concerns addressed to the patient's satisfaction. The patient was given the phone number to the clinic and was told how to make contact with the clinic should any concerns or questions arise. Patient understands that if any questions or concerns arise prior to the next appointment, we should be contacted immediately. FOLLOW-UP: Continue to follow while inpatient Plan discussed with: Patient Date of Service: Aug 13, 2024 Billing Provider: HERIBERTO LARSEN DPM Common Visit Codes: CONSULT ONLY Consultation Codes: [id number] CONSULT <80MIN HERIBERTO LARSEN DPM Aug 13, 2024 15:10
--- NOTE | 2024-08-13 15:41 | DVH ---
EXAMINATION: CT CT L FOOT WO CONTRAST INDICATION: ULCER RIGHT FOOT COMPARISON: None TECHNIQUE: CT of the left foot was performed without contrast. Volume transverse images were obtained reconstructed in multiple planes using bone and soft tissue algorithms. Radiation Dose Information: CT Dose: CTDI volume is 7.75 mGy. Dose-length product is 519.45 mGy*cm FINDINGS/IMPRESSION: No acute fracture or dislocation. Indeterminate diffuse sclerosis of the calcaneus. MRI can be obtained to further evaluate to assess f or stress fracture osteomyelitis if clinically indicated. Pes planus. Presumed neuropathic changes of the foot. Diffuse subcutaneous soft-tissue edema and swelling ; possibly cellulitis. Postsurgical changes of the ankle joint.
--- NOTE | 2024-08-13 15:44 | DVH ---
EXAMINATION: CT CT R FOOT WO CONTRAST INDICATION: ULCER BOTH FEET COMPARISON: None TECHNIQUE: CT of the right foot was performed without contrast. Volume transverse images were obtaine d reconstructed in multiple planes using bone and soft tissue algorithms. Radiation Dose Information: CT Dose: CTDI volume is 7.8 mGy. Dose-length product is 519.5 mGy*cm FINDINGS/IMPRESSION: No acute fracture or dislocation. Diffuse osteopenia. Indeterminate diffuse sclerosis of the calcaneus. MRI can be obtained to further evaluate to assess f or stress fracture osteomyelitis if clinically indicated. Diffuse subcutaneous soft-tissue edema and swelling ; possibly cellulitis. Postsurgical changes of the ankle joint. Presumed neuropathic changes of the foot.
[2024-08-13] MEDS: MEROPENEM 1GM IVPB 50 ML IV SCH (21:36)
[2024-08-13] MEDS: APIXABAN 5 MG TAB PO SCH (22:00)
[2024-08-14] VITALS (8 sets, daily range): BP systolic 108–128; BP diastolic 48–56; PULSE 69–86; RESP 15–18; TEMP 97.5–98.3; O2SAT 94–98
[2024-08-14] MEDS: BACLOFEN 10 MG TAB PO PRN (04:28)
[2024-08-14] MEDS: AMIODARONE HCL 200 MG TAB PO SCH (09:35)
[2024-08-14] MEDS: LOSARTAN POTASSIUM 25 MG TAB PO SCH (09:36)
--- NOTE | 2024-08-14 11:16 | DVHPN2 ---
Progress Note Date Seen: Aug 14, 2024 Medical Necessity Reason Pt with a Central, PICC or Fol: No Subjective Patient reports: No new complaints Review of Systems: HEENT:Normal, CVS:Normal, RESPIRATORY:Normal, GI:Normal, :Normal, MSK:Normal, NEURO:Normal Objective vital signs Vital Sign Date Time Temp Pulse Resp B/P (MAP) Pulse Ox O2 Delivery O2 Flow Rate FiO2 08/14/24 09:36 128/49 08/14/24 05:00 97.9 78 18 98 97.9 08/13/24 20:00 Room Air* 0 21 Total Intake and Output 08/13/24 08/13/24 08/14/24 15:00 23:00 07:00 Intake Total 300 ml 1830 ml 500 ml Output Total 1550 ml Balance 300 ml 280 ml 500 ml medications Current Medications Medications Dose Ordered Sig/Vinny Route Start Time Stop Time Status Last Admin Dose Admin Duloxetine HCl 60 mg BID PO 08/11/24 22:00 08/13/24 21:36 60 MG Baclofen 10 mg Q8HP PRN PO 08/11/24 20:15 08/14/24 04:28 10 MG Sodium Chloride 10 ml Q8HR IV 08/11/24 22:00 08/14/24 05:54 10 ML Ondansetron HCl 4 mg Q4HP PRN IV 08/11/24 20:15 Docusate Sodium 100 mg BIDPRN PRN PO 08/11/24 20:15 Nitroglycerin 0.4 mg Q5MINP PRN SL 08/11/24 22:45 Morphine Sulfate 2 mg Q30M PRN IV 08/11/24 22:45 Cancel Amino Acid Protein 30 ml DAILY PO 08/13/24 10:00 08/14/24 09:44 30 ML Ascorbic Acid 500 mg BID PO 08/12/24 22:00 08/14/24 09:35 500 MG Multivitamins/ Minerals 1 tab DAILY PO 08/13/24 10:00 08/14/24 09:35 1 TAB Morphine Sulfate 2 mg Q30M PRN IV 08/12/24 10:30 Linezolid 300 ml @ 150 mls/hr Q12H IV 08/12/24 18:30 08/14/24 05:59 150 MLS/HR Tramadol HCl 50 mg Q6HP PRN PO 08/12/24 18:30 08/14/24 09:35 50 MG Acetaminophen 650 mg Q6HP PRN PO 08/12/24 21:30 08/13/24 01:35 650 MG Apixaban 2.5 mg BID PO 08/13/24 22:00 08/14/24 09:35 2.5 MG Amiodarone HCl 200 mg DAILY PO 08/14/24 10:00 08/14/24 09:35 200 MG Losartan Potassium 25 mg DAILY PO 08/14/24 10:00 08/14/24 09:36 25 MG Meropenem 50 ml @ 17 mls/hr Q12HR IV 08/13/24 22:00 08/14/24 09:35 17 MLS/HR Examination: GENERAL:Normal, HEENT:Normal, NECK:Normal, LUNGS:Normal, CVS:Normal, ABDOMEN:Normal, MSK:Normal, MSK:Abnormal (bilateral foot wounds), SKIN:Normal, NEURO:Normal, :Normal laboratory and microbiology Laboratory Tests 08/13/24 05:44 08/12/24 08:35 Test 08/12/24 08:35 Range/Units Serum Glucose 90 74-106 mg/dL Problem List/Assessment/Plan Problem List/Assessment/Plan #1 ?sepsis with ulcer left foot, cellulitis right leg: iv antibiotics #2 a fib with secondary hypercoagulable state: cont meds #3 htn #4 bed bound status/functional quadriplegia #5 peripheral neuropathy #6 mod protein malnutrition advance care planning- full code- time spent 19 mins Plan discussed with: Patient My Orders My Orders Orders - CAPRI OSEI MD Procedure Category Date Status Time Apixaban (Eliquis) PHA 08/13/24 In Process 22:00 Amiodarone Tablet PHA 08/14/24 In Process (Cordarone Tablet) 10:00 Losartan Tablet PHA 08/14/24 In Process (Cozaar Tablet) 10:00 Meropenem 1gm Ivpb PHA 08/13/24 In Process (Merrem 1gm/ Ns) 22:00 *Podiatry Consult CONS 08/13/24 Transmitted Musson(Dvmg) 12:01 Ct L Foot Wo Contrast CT 08/13/24 Resulted 12:01 Urinalysis LAB 08/13/24 Uncollected 12:01 Ct R Foot Wo Contrast CT 08/13/24 Resulted Apply Barrier Cream MARY 08/13/24 In Process 13:20 Dietary Evaluation Review Recommendations by RD: Protein Supplementation Comments: 1) Initiate Pro-Stat @ 30 mL qd 2) Initiate MVI @ 1 tb qd 3) Consider vitamin C @ 500 mg bid and zinc sulfate @ 220 mg qd for 7-10 days 4) Encourage optimal PO intake. If < 50%, initiate Ensure Enlive qd 5) Continue to monitor I&O, labs, and skin integrity Expected Outcomes/Goals: 1) appetite and labs to improve 2) wound to improve 3) f/u in 3-5 days Date of Service: Aug 14, 2024 Billing Provider: CAPRI OSEI MD Common Visit Codes: [id number] INP/OBS CARE(HIGH) CAPRI OSEI MD Aug 14, 2024 11:16
[2024-08-14 16:34] LABS: Urine Bacteria None Seen /hpf (None Seen)
[2024-08-14 16:45] LABS: Urine Blood Negative /uL (Negative); Urine Clarity Clear (Clear); Urine Color Light-Yellow (Yellow); Urine Protein, UAD Negative (Negative); Urine Specific Gravity 1.008 (1.001-1.035); Urine Squamous Epithelial Cell None Seen /hpf (<5); Urine Urobilinogen Normal (Negative); Urine WBC 1 /HPF (0-5); Urine pH 7.5 (5.0-9.0)
[2024-08-15] VITALS (7 sets, daily range): BP systolic 105–134; BP diastolic 41–64; PULSE 64–77; RESP 16–20; TEMP 97.8–98.8; O2SAT 94–97
--- NOTE | 2024-08-15 11:16 | DVHPN2 ---
Progress Note Date Seen: Aug 15, 2024 Medical Necessity Reason Pt with a Central, PICC or Fol: No Subjective Patient reports: No new complaints Review of Systems: HEENT:Normal, CVS:Normal, RESPIRATORY:Normal, GI:Normal, :Normal, MSK:Normal, NEURO:Normal Objective vital signs Vital Sign Date Time Temp Pulse Resp B/P (MAP) Pulse Ox O2 Delivery O2 Flow Rate FiO2 08/15/24 10:37 130/60 08/15/24 09:00 97.8 71 20 96 97.8 08/15/24 08:00 Room Air* 0 21 Total Intake and Output 08/14/24 08/14/24 08/15/24 15:00 23:00 07:00 Intake Total 300 ml 1084 ml 700 ml Output Total 3 ml 3 ml Balance 300 ml 1081 ml 697 ml medications Current Medications Medications Dose Ordered Sig/Vinny Route Start Time Stop Time Status Last Admin Dose Admin Duloxetine HCl 60 mg BID PO 08/11/24 22:00 08/15/24 10:37 60 MG Baclofen 10 mg Q8HP PRN PO 08/11/24 20:15 08/15/24 10:38 10 MG Sodium Chloride 10 ml Q8HR IV 08/11/24 22:00 08/15/24 06:08 10 ML Ondansetron HCl 4 mg Q4HP PRN IV 08/11/24 20:15 Docusate Sodium 100 mg BIDPRN PRN PO 08/11/24 20:15 Nitroglycerin 0.4 mg Q5MINP PRN SL 08/11/24 22:45 Morphine Sulfate 2 mg Q30M PRN IV 08/11/24 22:45 Cancel Amino Acid Protein 30 ml DAILY PO 08/13/24 10:00 08/15/24 10:00 30 ML Ascorbic Acid 500 mg BID PO 08/12/24 22:00 08/15/24 10:38 500 MG Multivitamins/ Minerals 1 tab DAILY PO 08/13/24 10:00 08/15/24 10:36 1 TAB Morphine Sulfate 2 mg Q30M PRN IV 08/12/24 10:30 Linezolid 300 ml @ 150 mls/hr Q12H IV 08/12/24 18:30 08/15/24 06:35 150 MLS/HR Tramadol HCl 50 mg Q6HP PRN PO 08/12/24 18:30 08/15/24 04:30 50 MG Acetaminophen 650 mg Q6HP PRN PO 08/12/24 21:30 08/15/24 03:16 650 MG Apixaban 2.5 mg BID PO 08/13/24 22:00 08/15/24 10:38 2.5 MG Amiodarone HCl 200 mg DAILY PO 08/14/24 10:00 08/15/24 10:36 200 MG Losartan Potassium 25 mg DAILY PO 08/14/24 10:00 08/15/24 10:37 25 MG Meropenem 50 ml @ 17 mls/hr Q12HR IV 08/13/24 22:00 08/15/24 10:41 17 MLS/HR Examination: GENERAL:Normal, HEENT:Normal, NECK:Normal, LUNGS:Normal, CVS:Normal, ABDOMEN:Normal, MSK:Normal, MSK:Abnormal (ulcers both legs, ulcers), SKIN:Normal, NEURO:Normal, :Normal laboratory and microbiology Laboratory Tests 08/13/24 05:44 08/12/24 08:35 Test 08/12/24 08:35 Range/Units Serum Glucose 90 74-106 mg/dL Problem List/Assessment/Plan Problem List/Assessment/Plan #1 ?sepsis with ulcer left foot, cellulitis right leg: iv antibiotics #2 a fib with secondary hypercoagulable state: cont meds #3 htn #4 bed bound status/functional quadriplegia #5 peripheral neuropathy #6 mod protein malnutrition advance care planning- full code- time spent 19 mins Plan discussed with: Patient Dietary Evaluation Review Recommendations by RD: Protein Supplementation Comments: 1) Initiate Pro-Stat @ 30 mL qd 2) Initiate MVI @ 1 tb qd 3) Consider vitamin C @ 500 mg bid and zinc sulfate @ 220 mg qd for 7-10 days 4) Encourage optimal PO intake. If < 50%, initiate Ensure Enlive qd 5) Continue to monitor I&O, labs, and skin integrity Expected Outcomes/Goals: 1) appetite and labs to improve 2) wound to improve 3) f/u in 3-5 days Date of Service: Aug 15, 2024 Billing Provider: CAPRI OSEI MD Common Visit Codes: [id number] INP/OBS CARE(HIGH) Secondary Visit Codes: [id number] CARE PLAN 30 MINUTES CAPRI OSEI MD Aug 15, 2024 11:16
[2024-08-15] MEDS: GABAPENTIN 300 MG CAP PO ONE (11:30)
[2024-08-15] MEDS: GABAPENTIN 300 MG CAP PO SCH (21:49)
[2024-08-16] VITALS (7 sets, daily range): BP systolic 100–114; BP diastolic 52–59; PULSE 62–83; RESP 18–21; TEMP 96.5–97.7; O2SAT 94–97
--- NOTE | 2024-08-16 15:43 | DVHDS2 ---
Discharge Summary Date of Admission August 11, 2024 at 22:45 Date of Discharge: Aug 16, 2024 Labs/Diagnostic Data: Laboratory Results Test 08/14/24 12:36 08/13/24 05:44 08/12/24 08:35 Urine Color Light-yellow (Yellow) Urine Clarity Clear (Clear) Urine pH 7.5 (5.0-9.0) Urine Specific [place] 1.008 (1.001-1.035) Urine Protein Negative (Negative) Urine Ketones Negative (Negative) Urine Blood Negative /uL (Negative) Urine Nitrite Negative (Negative) Urine Bilirubin Negative (Negative) Urine Urobilinogen Normal mg/dL (Negative) Urine Leukocyte Esterase Negative /uL (Negative) Urine RBC 2 /hpf (0 - 4) Urine Microscopic WBC 1 /HPF (0-5) Urine Squamous Epithelial Cells None seen /hpf (<5) Urine Bacteria None seen /hpf (None Seen) Urine Glucose Normal mg/dL (Normal) White Blood Count 10.2 10^3/uL (4.4-10.8) Red Blood Count 4.34 10^6/uL (4.0-5.20) Hemoglobin 12.8 g/dL (12.2-16.2) Hematocrit 39.2 % (36.0-46.0) Mean Corpuscular Volume 90.3 fL (80.0-100.0) Mean Corpuscular Hemoglobin 29.4 pg (28.0-32.0) Mean Corpuscular Hemoglobin Concent 32.5 g/dL (32.0-36.0) Red Cell Distribution Width 14.3 % (11.8-14.3) Platelet Count 478 10^3/uL (140-450) Mean Platelet Volume 7.7 fL (6.9-10.8) Neutrophils (%) (Auto) 64.3 % (37.0-80.0) Lymphocytes (%) (Auto) 22.9 % (10.0-50.0) Monocytes (%) (Auto) 6.9 % (0.0-12.0) Eosinophils (%) (Auto) 5.1 % (0.0-7.0) Basophils (%) (Auto) 0.8 % (0.0-2.0) Neutrophils # (Auto) 6.5 10 ^3/uL (1.6-8.6) Lymphocytes # (Auto) 2.3 10 ^3/uL (0.4-5.4) Monocytes # (Auto) 0.7 10 ^3/uL (0-1.3) Eosinophils # (Auto) 0.5 10 ^3/uL (0-0.8) Basophils # (Auto) 0.1 10 ^3/uL (0-0.2) Nucleated Red Blood Cells 0.2 % Creatinine 0.82 mg/dL (0.550-1.02) Glomerular Filtration Rate Calc 71 mL/min (>90) Sodium Level 143 mmol/L (136-145) Potassium Level 4.2 mmol/L (3.5-5.1) Chloride Level 111 mmol/L (98-107) Carbon Dioxide Level 28 mmol/L (20-31) Anion Gap 4 (5-15) Blood Urea Nitrogen 16 mg/dL (9-23) BUN/Creatinine Ratio 17.4 (10.0-20.0) Serum Glucose 90 mg/dL (74-106) Calcium Level 9.2 mg/dL (8.7-10.4) Total Bilirubin 0.3 mg/dL (0.2-1.0) Aspartate Amino Transferase (AST) 14 U/L (13-40) Alanine Aminotransferase (ALT) 10 U/L (7-40) Alkaline Phosphatase 81 U/L (46-116) Total Protein 4.9 g/dL (5.7-8.2) Albumin 2.7 g/dL (3.2-4.8) Other Laboratory Tests 08/13/24 05:44 08/12/24 08:35 Brief Hx & Hospital Course: see dictated note Condition at Discharge: Fair Final Diagnosis/Problems List cellulitis both feet Discharge Disposition: Home Discharge Instruct/Medications Diet: Cardiac 2g Na,low cholest Activity: No Restrictions, As Tolerated Follow Up/Referral: fu with dr Sanders in 1 wk/pcp Medications: resume home meds script to pharmacy Discharge Statement: "Patient was advised to return to the ER or call 911 if any headaches, dizziness, shortness of breath, chest pain, abdominal pain, bleeding, fevers, or worsening of medical condition. Patient was counseled about treatment plan, medications, possible side effects, patientverbalized understanding. All questions were answered to the best of my ability. This discharge took greater then 30 minutes in planning, reviewing documentation, counseling the patient, and discussing with other team members." ASSESSMENT ASSESSMENT Assessment cellulitis both feet Date of Service: Aug 16, 2024 Billing Provider: CAPRI OSEI MD Common Visit Codes: [id number]/OBS DISCH DAY >30min CAPRI OSEI MD Aug 16, 2024 15:43
[2024-08-16] MEDS ORDERED: DOXY-286 PO (15:59)
[2024-08-16] MEDS ORDERED: LEVO500T91 PO (15:59)
--- NOTE | 2024-08-16 17:10 | DVHDS ---
DATE OF DISCHARGE: 08/16/2024 The patient is an 84-year-old lady who was admitted with history of bilateral lower extremity wounds and bilateral buttock and thigh redness. The patient has history of atrial fibrillation, hypertension, neuropathy, and depression. HOSPITAL COURSE: The patient had elevated white count of 11.7. She was seen in Podiatry consult by Dr. Sanders. CT of the right foot showed diffuse sclerosis of the calcaneum with evidence of likely cellulitis. CT of the left foot showed diffuse sclerosis of the calcaneum with evidence of cellulitis as well. The patient was placed on intravenous antibiotics. Wound cultures have so far been negative. The patient currently is doing well and her white count has improved to normal. She will be discharged home to resume her home medications as well as to be on doxycycline 100 mg p.o. b.i.d. for 14 days along with Levaquin 500 mg daily for 10 days. She will resume home health for wound care and will follow up with Dr. Sanders in the next one to two weeks. She will also follow up with the primary. FINAL DIAGNOSES: * Questionable sepsis with left foot and cellulitis right leg. * Atrial fibrillation with secondary hypercoagulable state. * Hypertension. * Bedbound status/functional quadriplegia. * Peripheral neuropathy. * Moderate protein malnutrition. Time spent in discharge planning and review of plan with the patient and nursing was 37 minutes. MD GIOVANNA Goss/ZULEIKA/VU TID: [id number] RECEIPT: [id number]
== END 2024-08-16 21:22 | disposition home health service (06) | DRG 871 ==
LOC: EDBD 16:32 → ER 16:37 → OVERFLOW 22:45 → EAST 08-12 02:15
PROVIDERS: ADMIT Internal Medicine; ATTEND Internal Medicine
DX: A41.9 Sepsis, unspecified organism (principal); E43 Unspecified severe protein-calorie malnutrition; R53.2 Functional quadriplegia; N39.0 Urinary tract infection, site not specified; D68.69 Other thrombophilia; L03.115 Cellulitis of right lower limb; L03.116 Cellulitis of left lower limb; L97.429 Non-pressure chronic ulcer of left heel and midfoot with unspecified severity; L97.419 Non-pressure chronic ulcer of right heel and midfoot with unspecified severity; G62.9 Polyneuropathy, unspecified; I11.9 Hypertensive heart disease without heart failure; F32.A Depression, unspecified; I87.2 Venous insufficiency (chronic) (peripheral); L98.429 Non-pressure chronic ulcer of back with unspecified severity; I48.91 Unspecified atrial fibrillation; E66.811 Obesity, class 1; Z68.30 Body mass index [BMI] 30.0-30.9, adult; Z74.01 Bed confinement status; Z88.1 Allergy status to other antibiotic agents; Z88.0 Allergy status to penicillin; Z99.3 Dependence on wheelchair; Z79.01 Long term (current) use of anticoagulants; Z79.899 Other long term (current) drug therapy; Z90.49 Acquired absence of other specified parts of digestive tract; Z83.3 Family history of diabetes mellitus
CPT/HCPCS: 36415; 73700; 80048; 80053; 81001; 82565; 85025; 87205; 96365; 96375; G0378; J0131; J2185